=== PATIENT | female | born 2000 | race African-American/Black ===

== ENCOUNTER → 2020-08-19 12:18 | Outpatient (BNVA) | payer OTHER, SELFPAY | PROVIDERS: PCP Pediatrics; Referring Provider Pediatrics; Visit Provider Advanced Practice Midwife | DX: Z76.89 Persons encountering health services in other specified circumstances (principal) ==

== ENCOUNTER 2020-09-09 14:15 | Outpatient (REF) | payer OTHER, SELFPAY ==
--- NOTE | 2020-09-09 14:20 | US_ITS ---
EXAMINATION: US OBSTETRICAL CLINICAL INFORMATION: 19-year-old at 20.0 weeks of gestation Suspected anomaly COMPARISON: 07/15/2020 TECHNIQUE: Real-time transabdominal ultrasound was performed using C1-5 megahertz transducer. FINDINGS: A single, active, fetus is seen in breech presentation. The placenta is anterior without previa, and the amniotic fluid volume is wnl. MEASUREMENTS: 1. Biparietal Diameter: 4.93 cm; 21.0 wks 2. Occipital Frontal Diameter: 6.2 cm 3. Head Circumference: 18.2 cm; 20.5 wks 4. Abdominal Circumference: 15.2 cm; 20.3 wks 5. Femur Length: 3.5 cm; 21.0 wks 6. Humerus Length: 3.4 cm; 21.4 wks 7. Tibia Length: 2.5 cm; 19.1 wks 8. Ulna Length: 3.12 cm; 21.6 wks 9. Lateral ventricle: 0.76 cm 10. Cerebellum: 1.98 cm; 20.2 wks 11. Cisterna Magna: 0.59 cm 12. Nuchal Fold: 3.1 mm 13. Heart Rate: 135 beats per minute Rt ovary: normal Lt ovary: normal Cervical length 3.8 cm on T/A. GESTATIONAL AGE: 1. Established GA: 20.0 wks 2. GA from [facility]: 20.6 wks ESTIMATED DATE OF DELIVERY: 1. Established ANDRES: 01/27/2021 2. ANDRES from [facility]: 01/21/2021 ANATOMY: The visualized anatomy includes but not limited to: 1. Cranium: Normal 2. Intracranial anatomy: cavum septum pellucidi, lateral ventricles, choroid plexus, cerebellum, posterior fossa, third and fourth ventricles. 3. face: orbits, lip/palate, profile, nasal bone 4. Heart: four-chamber view of the heart, ventricular septum, foramen ovale, pulmonary vein, left and right outflow tracts, three-vessel view, 3 vessel trachea view, aortic and ductal arches, situs.. 5. Diaphragm: Normal 6. Abdominal wall: Normal 7. Cord Insertion: Normal 8. Spine: Cervical, thoracic, lumbar, sacral. 9. Stomach: Normal size and shape 10. Right Kidney: Normal 11. Left Kidney: Normal 12. 3 vessel cord: Normal 13. Upper extremity: Open hands, fifth digit. 14. Lower extremity: Tibia, fibula, bilateral feet. 15. Bladder: Normal 16. Genitalia: Male, patient aware US/US OB /maternal detail IMPRESSION: 1. Single, living, intrauterine with appropriate biometry. 2. Normal survey DISCUSSION: I reviewed today's ultrasound findings. We discussed the limitations of ultrasound in diagnosing aneuploidy and other congenital abnormalities. I reviewed the differences between screening test and diagnostic test. Amniocentesis was discussed and declined. She was informed that the baseline incidence of congenital abnormalities is approximately 3-5%. Not all these conditions are diagnosable in utero. RECOMMENDATIONS: 1. f/u PRN Thank you for allowing me to participate in her care. Visiting time 25 minutes. Majority of this visit was spent reviewing and discussing her care.
== END 2020-09-09 14:16 | disposition home or self-care (01) ==
LOC: HO.US 14:15
PROVIDERS: Visit Provider Advanced Practice Midwife
DX: Z36.3 Encounter for antenatal screening for malformations (principal)
CPT/HCPCS: 76811

== ENCOUNTER 2020-09-26 13:27 | Outpatient (REF) | payer OTHER, SELFPAY ==
[2020-09-27 09:18] LABS: CT PCR NOT DETECTED (Not Detect.); NG PCR NOT DETECTED (Not Detect.)
[2020-09-27 13:27] LABS: BV Int Neg Control Negative (Negative); BV Int Pos Control Positive (Positive)
== END 2020-09-26 13:28 | disposition home or self-care (01) ==
LOC: HO.LAB 13:27
PROVIDERS: PCP Pediatrics; Visit Provider Advanced Practice Midwife
DX: Z34.90 Encounter for supervision of normal pregnancy, unspecified, unspecified trimester (principal); N89.8 Other specified noninflammatory disorders of vagina; Z20.2 Contact with and (suspected) exposure to infections with a predominantly sexual mode of transmission
CPT/HCPCS: 87480; 87491; 87510; 87591; 87660; 90686

== ENCOUNTER → 2020-10-12 10:43 | Outpatient (BNVA) | payer OTHER, SELFPAY | PROVIDERS: PCP Pediatrics; Visit Provider Advanced Practice Midwife | DX: O26.892 Other specified pregnancy related conditions, second trimester (principal); M54.9 Dorsalgia, unspecified | CPT/HCPCS: 81003 ==

== ENCOUNTER → 2020-10-26 15:04 | Outpatient (BNVA) | payer OTHER, SELFPAY | PROVIDERS: PCP Pediatrics; Visit Provider Advanced Practice Midwife | DX: O36.5990 Maternal care for other known or suspected poor fetal growth, unspecified trimester, not applicable or unspecified (principal) | CPT/HCPCS: 81003; 99212 ==

== ENCOUNTER 2020-10-26 15:37 | Outpatient (REF) | payer OTHER, SELFPAY ==
--- NOTE | 2020-10-26 15:40 | US_ITS ---
EXAMINATION: US OBSTETRICAL FOLLOW UP WITH BIOPHYSICAL PROFILE CLINICAL INFORMATION: Size less than dates. Follow-up. COMPARISON: Obstetrical ultrasound 09/09/2020, 07/15/2020, 05/25/2020 TECHNIQUE: Real time transabdominal imaging with color and M-mode Doppler. POSITION: Breech PLACENTA: Anterior AMNIOTIC FLUID INDEX: 14.4 cm MEASUREMENTS: The initial dating ultrasound dated provided an estimated date of delivery of 01/23/2021. This would project today to a of 27 weeks 2 days. biometric measurements are as follows: Biparietal Diameter: 6.7 cm (27 weeks 0 days) Occipital Frontal Diameter: 9.3 cm (28 weeks 4 days) Head Circumference: 25.9 cm (28 weeks 1 day) Abdominal Circumference: 22.8 cm (27 weeks 2 days) Femur Length: 4.9 cm (26 weeks 4 days) The standard deviation for the above measurements is +/- 2.2 weeks. ESTIMATED WEIGHT: The EFW is 1017 grams +/- 149 grams (2 lbs 4 oz +/- 5 oz). This is at the 51st percentile. BIOPHYSICAL PROFILE: Biophysical profile is performed over 30 minutes with assessment of breathing, gross body movement, tone, and qualitative amniotic fluid volume. Each matrix is scored 0 or 2, depending if the metric is present. Maximum total score possible is 8. Motion: 2 Tone: 2 Breathin Amniotic Fluid: 2 Total score: 8 HR: 147 bpm US/US OB follow up IMPRESSION: 1. Single intrauterine gestation in breech position with anterior placenta. 2. EFW is 1017 grams +/- 149 grams (2 lbs 4 oz +/- 5 oz). This is at the 51st percentile. 3. ETHAN: 14.4 cm. 4. BPP score: 8 (scale 0-8).
== END 2020-10-26 15:38 | disposition home or self-care (01) ==
LOC: HO.US 15:37
PROVIDERS: PCP Pediatrics; Visit Provider Advanced Practice Midwife
DX: O36.5920 Maternal care for other known or suspected poor fetal growth, second trimester, not applicable or unspecified (principal); Z3A.27 27 weeks gestation of pregnancy
CPT/HCPCS: 76816

== ENCOUNTER 2020-11-09 14:15 | Outpatient (REF) | payer OTHER, SELFPAY ==
[2020-11-09 16:59] LABS: Hematocrit 31.6 % (37-47); Hemoglobin 10.2 g/dl (12.0-16.0); Mean Corpuscular HGB Conc 32.3 g/dl (31.0-35.0); Mean Corpuscular Hemoglobin 25.8 pg (27.0-33.0); Mean Corpuscular Volume 79.8 fL (80-98); Mean Platelet Volume 10.1 fL (9.4-12.3); Platelet Count 269 X10*3/uL (160-400); Red Blood Count 3.96 X10*6/uL (4.20-5.50); Red Cell Distribution Width 11.8 % (11.0-16.0); White Blood Count 10.1 X10*3/uL (4.8-10.8)
[2020-11-09 17:36] LABS: Glucose 1 Hour PP 50gm Dose 106 mg/dL (60-140)
[2020-11-09 18:01] LABS: Syphilis Screen Nonreactive (Nonreactive)
== END 2020-11-09 14:16 | disposition home or self-care (01) ==
LOC: HO.LAB 14:15
PROVIDERS: PCP Pediatrics; Visit Provider Advanced Practice Midwife
DX: Z34.90 Encounter for supervision of normal pregnancy, unspecified, unspecified trimester (principal)
CPT/HCPCS: 36415; 81003; 85027; 86780; 99212

== ENCOUNTER → 2020-11-23 14:15 | Outpatient (BNVA) | payer OTHER, SELFPAY | PROVIDERS: Visit Provider Advanced Practice Midwife | DX: Z34.02 Encounter for supervision of normal first pregnancy, second trimester (principal) | CPT/HCPCS: 81003; 99212 ==

== ENCOUNTER → 2020-12-07 14:38 | Outpatient (BNVA) | payer OTHER, SELFPAY | PROVIDERS: PCP Pediatrics; Visit Provider Advanced Practice Midwife | DX: O99.891 Other specified diseases and conditions complicating pregnancy (principal); M54.9 Dorsalgia, unspecified | CPT/HCPCS: 81003; 90471; 90715; 99212 ==

== ENCOUNTER → 2020-12-21 14:26 | Outpatient (BNVA) | payer OTHER, SELFPAY | PROVIDERS: PCP Pediatrics; Visit Provider Advanced Practice Midwife | DX: Z34.90 Encounter for supervision of normal pregnancy, unspecified, unspecified trimester (principal); Z20.2 Contact with and (suspected) exposure to infections with a predominantly sexual mode of transmission | CPT/HCPCS: 81003; 99212 ==

== ENCOUNTER 2020-12-27 15:23 | Outpatient (REF) | payer OTHER, SELFPAY ==
--- NOTE | ~2020-12-27 | US_ITS ---
EXAMINATION: US OBSTETRICAL FOLLOW UP WITH BIOPHYSICAL PROFILE CLINICAL INFORMATION: Uterine size/date discrepancy COMPARISON: Previous exams most recent 10/26/2020 TECHNIQUE: Real time transabdominal imaging with color and M-mode Doppler. POSITION: Cephalic PLACENTA: Anterior. Grade 3. AMNIOTIC FLUID INDEX: 15.1 cm MEASUREMENTS: The estimated date of delivery by LMP of 01/27/2021. This would project today to a of 35 weeks 4 days. biometric measurements are as follows: Biparietal Diameter: 8.4 cm (34 weeks 0 days) Occipital Frontal Diameter: 11 cm (35 weeks 5 days) Head 32: cm (35 weeks 4 days) Abdominal Circumference: 32.5 cm (36 weeks 3 days) Femur Length: 6.7 cm (34 weeks 2 days) The standard deviation for the above measurements is +/- 3 weeks. ESTIMATED WEIGHT: The EFW is 2704 grams +/- 395 grams (5 lbs 15 oz +/- 14 oz). This is at the 48 percentile. BIOPHYSICAL PROFILE: Biophysical profile is performed over 30 minutes with assessment of breathing, gross body movement, tone, and qualitative amniotic fluid volume. Each matrix is scored 0 or 2, depending if the metric is present. Maximum total score possible is 8. Motion: 2 Tone: 2 Breathin Amniotic Fluid: 2 Total score: 8 HR: 146 bpm US/US OB follow up IMPRESSION: 1. Single intrauterine gestation in cephalic position with anterior placenta. 2. EFW: 5 lbs. 15 oz. 3. ETHAN: 15 cm. 4. BPP score: 8 (scale 0-8).
== END 2020-12-27 15:24 | disposition home or self-care (01) ==
LOC: HO.US 15:23
PROVIDERS: Visit Provider Obstetrics & Gynecology
DX: O26.849 Uterine size-date discrepancy, unspecified trimester (principal)
CPT/HCPCS: 76816

== ENCOUNTER → 2020-12-28 13:35 | Outpatient (BNVA) | payer OTHER, SELFPAY | PROVIDERS: PCP Pediatrics; Visit Provider Advanced Practice Midwife | DX: Z34.93 Encounter for supervision of normal pregnancy, unspecified, third trimester (principal) | CPT/HCPCS: 81003; 99212 ==

== ENCOUNTER → 2021-01-20 09:53 | Outpatient (BNVA) | payer OTHER, SELFPAY | PROVIDERS: Visit Provider Advanced Practice Midwife | DX: Z39.2 Encounter for routine postpartum follow-up (principal) | CPT/HCPCS: 99212 ==

== ENCOUNTER 2021-04-11 16:12 | Emergency (ER) | payer OTHER, SELFPAY ==
[2021-04-11 16:35] VITALS: BP 113/60; PULSE 86; RESP 18; TEMP 36; O2SAT 99; BMI 23.4
[2021-04-11 17:08] LABS: Glucose Urine UA NEG (NEG); Leukocyte Esterase Urine NEG (NEG); Nitrite Urine NEG (NEG); Urine Blood NEG (NEG); Urine Ketones 5 MG/DL (NEG); Urine Protein TRACE MG/DL (NEG-TRACE)
[2021-04-11 17:10] LABS: Urine Pregnancy POSITIVE (NEGATIVE)
[2021-04-11 17:11] LABS: UPreg QC Valid YES
[2021-04-11 17:12] LABS: Appearance Urine CLEAR; Color Urine YELLOW
== END 2021-04-11 19:18 | disposition left against medical advice (07) ==
PROVIDERS: Internal Medicine; Emergency Provider Emergency Medicine; PCP Pediatrics
DX: O26.891 Other specified pregnancy related conditions, first trimester (principal); R10.9 Unspecified abdominal pain; Z3A.00 Weeks of gestation of pregnancy not specified
CPT/HCPCS: 81003; 81025; 99282; 99283

== ENCOUNTER 2021-04-12 06:35 | Emergency (ER) | payer OTHER, SELFPAY ==
[2021-04-12 06:50] VITALS: BP 111/60; PULSE 80; RESP 16; TEMP 36.9; O2SAT 100; BMI 23.1
--- NOTE | 2021-04-12 07:01 | ED.FEMALEGU ---
HPI - Female Genitourinary General Chief complaint: Abdominal Pain Stated complaint: , cramps and soreness Time Seen by Provider: 04/12/21 06:52 Source: patient and old records reviewed Mode of arrival: ambulatory Limitations: no limitations History of Present Illness HPI Narrative: 20 yo female post c section scooby in December not on control, bottle feeding, had 10 days of bleeding in january she then took a test March 29 which was positive, she comes in c/o some spotting, white discharge and lower abdominal cramps, no concern for STI MD elicited complaint: vaginal discharge and pelvic pain Onset (ago): day(s) (2) Severity: moderate Quality of pain: cramping Consistency: intermittent Vaginal discharge: white Vaginal bleeding: scant Exacerbating factors: none Relieving factors: none Associated symptoms: abdominal pain Treatment prior to arrival: none Sexual activity: Yes Possible : unsure if Related Data Home Medications Medication Instructions Recorded Confirmed prenat.vits,tiffany,[id number] 1 tab PO DAILY 08/19/20 12/21/20 Previous Rx's Medication Instructions Recorded metronidazole 0.75 % vaginal gel 1 appful VAGINAL BEDTIME 5 Days 09/28/20 #70 g ferrous sulfate 325 mg (65 mg 325 mg PO DAILY 30 Days #30 tab 11/10/20 iron) tablet,delayed release Allergies Allergy/AdvReac Type Severity Reaction Status Date / Time No Known Allergies Allergy Verified 04/11/21 16:34 [No Known Allergies*] Review of Systems Review of Systems: Constitutional : No Weight loss, No Fever, No Chills ENT/Mouth : No sore throat, No Rhinorrhea Eyes: No Swelling, No Redness Cardiovascular : No Chest Pain, No SOB, NoEdema Respiratory : No Cough, No Sputum, No Wheezing Gastrointestinal : no Nausea, no Vomiting, no Diarrhea, positive abdominal Pain, No Hematochezia, No Melena Genitourinary : No Dysuria, No Urinary Frequency, No Hematuria, No Urgency, pos pelvic pain, pos discharge, scant spotting Musculoskeletal : No joint pain, No Myalgias, No Joint Swelling Skin : No Skin Lesions, No rash Neuro : No Weakness, No Numbness, No Dizziness, No Headache Psych : No Anxiety/Panic, No Depression Heme/Lymph: No Bruising, No Lymphadenopathy Endocrine : No Polyuria, No Polydipsia All other systems reviewed and are negative. PMFSH Past Medical History Attestation statement: The following information was validated with the patient. Medical History delivery delivered Supervision of normal Social History Social History (Updated 04/12/21 @ 07:12 by Ashly Smiley DO) Alcohol intake: never Patient Tobacco Use Status: Never used Tobacco Advance Directives: No Advance Directives Information Provided: No Patient : Yes Sexual orientation: Straight/Heterosexual Gender identity: female Physical Exam Vital Signs: Vital Signs: Last Vital Signs Temp 98.4 F 04/12/21 08:30 Pulse 77 04/12/21 08:30 Resp 16 04/12/21 08:30 BP 116/59 L 04/12/21 08:30 Pulse Ox 100 04/12/21 08:30 Body Mass Index 23.1 Appearance: Alert. Oriented X3. No acute distress. Eyes: Pupils equal, round and reactive to light. ENT: Pharynx normal. Neck: Normal inspection. Neck supple. CVS: Normal heart rate and rhythm. Pulses normal. Respiratory: No respiratory distress. Breath sounds normal. Abdomen: Soft and lower diffuse ttp no rebound or guarding Skin: Skin warm and dry. Normal skin color. Normal skin turgor. Extremities: No lower extremity edema. No calf ttp Neuro: Oriented X 3. No motor deficit. No sensory deficit. Course Course Course Narrative: stable for DC at this time Procedures Procedure Narrative Procedure Narrative: transabdominal US performed by me - single IUP noted with cardiac flicker, no ovarian cysts seen, flow to both ovaries, no free fluid seen MDM - Female Genitourinary MDM Narrative Medical decision making narrative: 20 yo female post c section delivery in December not on control, bottle feeding, had 10 days of bleeding in January she then took a test March 29 which was positive, she comes in c/o some spotting, white discharge and lower abdominal cramps, no concern for STI at this time will need labs, UA, hcg, O POS blood type, possible US to evaluate for ectopic pending quant. Lab Data Result diagrams: 04/12/21 08:12 04/12/21 08:12 Labs: Lab Results 04/12/21 04/12/21 04/12/21 Range/Units 07:38 08:12 08:12 WBC 6.5 (4.8-10.8) X10*3/uL RBC 4.66 (4.20-5.50) X10*6/uL Hgb 11.3 L (12.0-16.0) g/dl Hct 35.4 L (37-47) % MCV 76.0 L (80-98) fL MCH 24.2 L (27.0-33.0) pg MCHC 31.9 (31.0-35.0) g/dl RDW 16.3 H (11.0-16.0) % Plt Count 248 (160-400) X10*3/uL MPV 9.7 (9.4-12.3) fL Immature Gran % (Auto) 0.3 (0.0-0.4) % Neut % (Auto) 64.1 (45-73) % Lymph % (Auto) 24.6 (20-40) % [place] % (Auto) 7.3 (2-11) % Eos % (Auto) 3.2 (0-4) % Baso % (Auto) 0.5 (0-2) % Lymph # (Auto) 1.6 (1.2-4.9) X10*3/uL [place] # (Auto) 0.5 (0.1-1.2) X10*3/uL Eos # (Auto) 0.2 (0.0-0.4) X10*3/uL Baso # (Auto) 0.0 (0.0-0.2) X10*3/uL Abs Immat Gran (auto) 0.02 (0.00-0.03) X10*3/uL Absolute Neuts (auto) 4.2 (2.0-8.3) X10*3/uL Absolute Nucleated RBC 0.000 (0.0-0.012) X10*3/uL Nucleated RBC % (auto) 0.0 (0.0-0.2) /100WBC Sodium 135 (135-145) mmol/L Potassium 4.2 (3.3-5.1) mmol/L Chloride 105 (96-108) mmol/L Carbon Dioxide 23 (22-29) mmol/L Anion Gap 11 L (12-20) BUN 11 (9-16) mg/dL Creatinine 0.57 (0.5-1.4) mg/dL Estim Creat Clear Calc 135.9 Estimated GFR > 60 Random Glucose 77 (60-115) mg/dL Calcium 9.0 (8.4-10.2) mg/dL Total Bilirubin (0.0-1.0) mg/dL Direct Bilirubin (0.0-0.5) mg/dL AST (5-31) U/L ALT (0-31) U/L Alkaline Phosphatase (39-117) U/L Total Protein (6.5-8.0) g/dL Albumin (3.5-5.0) g/dL Lipase (8-78) U/L Beta HCG, Quant 92816 mIU/mL Urine Color YELLOW Urine Appearance CLEAR Urine pH 6.5 (5.0-8.0) Ur Specific [place] 1.025 (1.005-1.025) Urine Protein NEG (NEG-TRACE) MG/DL Urine Glucose (UA) NEG (NEG) MG/DL Urine Ketones NEG (NEG) MG/DL Urine Blood NEG (NEG) Urine Nitrite NEG (NEG) Ur Leukocyte Esterase NEG (NEG) 04/12/21 Range/Units 08:12 WBC (4.8-10.8) X10*3/uL RBC (4.20-5.50) X10*6/uL Hgb (12.0-16.0) g/dl Hct (37-47) % MCV (80-98) fL MCH (27.0-33.0) pg MCHC (31.0-35.0) g/dl RDW (11.0-16.0) % Plt Count (160-400) X10*3/uL MPV (9.4-12.3) fL Immature Gran % (Auto) (0.0-0.4) % Neut % (Auto) (45-73) % Lymph % (Auto) (20-40) % [place] % (Auto) (2-11) % Eos % (Auto) (0-4) % Baso % (Auto) (0-2) % Lymph # (Auto) (1.2-4.9) X10*3/uL [place] # (Auto) (0.1-1.2) X10*3/uL Eos # (Auto) (0.0-0.4) X10*3/uL Baso # (Auto) (0.0-0.2) X10*3/uL Abs Immat Gran (auto) (0.00-0.03) X10*3/uL Absolute Neuts (auto) (2.0-8.3) X10*3/uL Absolute Nucleated RBC (0.0-0.012) X10*3/uL Nucleated RBC % (auto) (0.0-0.2) /100WBC Sodium (135-145) mmol/L Potassium (3.3-5.1) mmol/L Chloride (96-108) mmol/L Carbon Dioxide (22-29) mmol/L Anion Gap (12-20) BUN (9-16) mg/dL Creatinine (0.5-1.4) mg/dL Estim Creat Clear Calc Estimated GFR Random Glucose (60-115) mg/dL Calcium (8.4-10.2) mg/dL Total Bilirubin 0.4 (0.0-1.0) mg/dL Direct Bilirubin < 0.2 (0.0-0.5) mg/dL AST 21 (5-31) U/L ALT 24 (0-31) U/L Alkaline Phosphatase 108 (39-117) U/L Total Protein 6.3 L (6.5-8.0) g/dL Albumin 4.0 (3.5-5.0) g/dL Lipase 18 (8-78) U/L Beta HCG, Quant mIU/mL Urine Color Urine Appearance Urine pH (5.0-8.0) Ur Specific [place] (1.005-1.025) Urine Protein (NEG-TRACE) MG/DL Urine Glucose (UA) (NEG) MG/DL Urine Ketones (NEG) MG/DL Urine Blood (NEG) Urine Nitrite (NEG) Ur Leukocyte Esterase (NEG) Discharge Plan Discharge Clinical Impression: Abdominal pain affecting Qualifiers: Weeks of gestation: less than 8 weeks Qualified Code(s): Z3A.01 - Less than 8 weeks gestation of Patient Disposition: Home, Self-Care Instructions: Abdominal Pain in (ED) Additional Instructions: return to ED for any worsening symptoms or concerns suspect off ultrasound and blood work you are around 6 to 8 weeks CALL YOUR OBGYN Prescriptions: No Action metronidazole [Metrogel Vaginal] 0.75 % gel 1 appful vaginal BEDTIME 5 Days Qty: 70 RF: 0 ferrous sulfate 325 mg (65 mg iron) tablet,delayed release (DR/EC) 325 mg PO DAILY 30 Days Qty: 30 RF: 6 prenat.vits,tiffany,[id number] Tablet 1 tab PO DAILY RF: 0 Stand Alone Forms: Work/School Release
[2021-04-12] MEDS: Acetaminophen 325 MG TABLET 650 MG PO (07:36)
[2021-04-12 07:45] LABS: Color Urine YELLOW; Glucose Urine UA NEG (NEG); Leukocyte Esterase Urine NEG (NEG); Nitrite Urine NEG (NEG); PH 6.5 (5.0-8.0); Specific Gravity - Urine 1.025 (1.005-1.025); Urine Blood NEG (NEG); Urine Ketones NEG (NEG); Urine Protein NEG (NEG-TRACE)
[2021-04-12 07:46] LABS: Appearance Urine CLEAR
[2021-04-12 08:17] LABS: Basophils Percent Auto 0.5 % (0-2); Eosinophils Absolute Auto 0.2 X10*3/uL (0.0-0.4); Eosinophils Percent Auto 3.2 % (0-4); Hematocrit 35.4 % (37-47); Hemoglobin 11.3 g/dl (12.0-16.0); Imm Gran Abs Auto 0.02 X10*3/uL (0.00-0.03); Imm Gran Pct Auto 0.3 % (0.0-0.4); Lymphocytes Absolute Auto 1.6 X10*3/uL (1.2-4.9); Lymphocytes Percent Auto 24.6 % (20-40); MANUAL DIFF FLAG NO; Mean Corpuscular HGB Conc 31.9 g/dl (31.0-35.0); Mean Corpuscular Hemoglobin 24.2 pg (27.0-33.0); Mean Platelet Volume 9.7 fL (9.4-12.3); Monocytes Absolute Auto 0.5 X10*3/uL (0.1-1.2); Monocytes Percent Auto 7.3 % (2-11); Neutrophils Absolute Auto 4.2 X10*3/uL (2.0-8.3); Neutrophils Percent Auto 64.1 % (45-73); Platelet Count 248 X10*3/uL (160-400); Red Blood Count 4.66 X10*6/uL (4.20-5.50); Red Cell Distribution Width 16.3 % (11.0-16.0); White Blood Count 6.5 X10*3/uL (4.8-10.8)
[2021-04-12 08:30] VITALS: BP 116/59; PULSE 77; RESP 16; TEMP 36.9; O2SAT 100
[2021-04-12 08:50] LABS: Anion Gap 11 (12-20); Blood Urea Nitrogen 11 mg/dL (9-16); Carbon Dioxide 23 mmol/L (22-29); Chloride 105 mmol/L (96-108); Creatinine Clr Calc Pharmacy 135.9; Estimated Glomerular Filt Rate > 60; Glucose Random 77 mg/dL (60-115); Potassium 4.2 mmol/L (3.3-5.1); Sodium 135 mmol/L (135-145)
[2021-04-12 08:51] LABS: Alanine Aminotransferase 24 U/L (0-31); Alkaline Phosphatase 108 U/L (39-117); Aspartate Amino Transferase 21 U/L (5-31); Bilirubin Direct < 0.2 mg/dL (0.0-0.5); Bilirubin Total 0.4 mg/dL (0.0-1.0); Lipase 18 U/L (8-78); Total Protein 6.3 g/dL (6.5-8.0)
== END 2021-04-12 09:42 | disposition home or self-care (01) ==
PROVIDERS: Emergency Provider Emergency Medicine; PCP Pediatrics
DX: O26.891 Other specified pregnancy related conditions, first trimester (principal); R10.9 Unspecified abdominal pain; Z3A.01 Less than 8 weeks gestation of pregnancy
CPT/HCPCS: 36415; 80048; 80076; 81003; 83690; 84702; 85025; 99283; 99284

== ENCOUNTER → 2021-12-26 15:22 | Outpatient (BNVA) | payer OTHER, SELFPAY | PROVIDERS: PCP Pediatrics; Visit Provider Advanced Practice Midwife ==

== ENCOUNTER 2022-01-25 10:24 | Outpatient (REF) | payer OTHER, SELFPAY ==
[2022-01-25 18:47] LABS: CT PCR NOT DETECTED (Not Detect.); NG PCR NOT DETECTED (Not Detect.)
[2022-01-26 11:17] LABS: BV Int Neg Control Negative (Negative); BV Int Pos Control Positive (Positive)
== END 2022-01-25 10:25 | disposition home or self-care (01) ==
LOC: HO.LAB 10:24
PROVIDERS: PCP Pediatrics; Visit Provider Advanced Practice Midwife
DX: Z30.432 Encounter for removal of intrauterine contraceptive device (principal); N89.8 Other specified noninflammatory disorders of vagina
CPT/HCPCS: 58301; 87480; 87491; 87510; 87591; 87660

== ENCOUNTER 2022-05-15 15:43 | Outpatient (REF) | payer OTHER, SELFPAY ==
[2022-05-16 05:17] LABS: HBc Num1 0.09 S/CO (0.00-0.79); HIV AB/AG Nonreactive (Nonreactive); HIV Num 1 0.17 S/CO (0.00-0.99); Hepatitis B Core Antibody Nonreactive (Nonreactive); ~HepC Num1 0.06 S/CO (0.00-0.79); ~Hepatitis C Antibody Nonreactive (Nonreactive)
[2022-05-16 07:09] LABS: Syphilis Screen Nonreactive (Nonreactive)
[2022-05-16 14:17] LABS: CT PCR NOT DETECTED (Not Detect.); NG PCR NOT DETECTED (Not Detect.)
== END 2022-05-15 15:44 | disposition home or self-care (01) ==
LOC: HO.LAB 15:43
PROVIDERS: Visit Provider Advanced Practice Midwife
DX: Z01.419 Encounter for gynecological examination (general) (routine) without abnormal findings (principal); Z11.4 Encounter for screening for human immunodeficiency virus [HIV]; Z11.3 Encounter for screening for infections with a predominantly sexual mode of transmission; Z20.2 Contact with and (suspected) exposure to infections with a predominantly sexual mode of transmission; N92.6 Irregular menstruation, unspecified
CPT/HCPCS: 36415; 81025; 86704; 86780; 86803; 87389; 87491; 87591; 88142

== ENCOUNTER 2022-08-14 05:54 | Emergency (ER) | payer OTHER, SELFPAY ==
[2022-08-14 06:14] VITALS: BP 122/67; PULSE 89; RESP 16; TEMP 37; O2SAT 100; BMI 22.3
--- NOTE | 2022-08-14 07:44 | ED_ITS ---
HPI - Female Genitourinary General Chief complaint: Urogenital-Female Stated complaint: possible cyst in private area Time Seen by Provider: 08/14/22 07:44 Source: patient Mode of arrival: ambulatory Limitations: no limitations History of Present Illness HPI Narrative: 21-year-old female patient presents emergency department for evaluation of swelling of the left side of her vagina. The patient developed pain and swelling the left side of her internal medicine veterinary technician a 3 days prior, she states that the pain and swelling is got progressively worse. She states that the pain is constant, throbbing sensation which is 10/10. She denied systemic symptoms such as fever, chills, fatigue, nausea or vomiting. She states this is the 1st episode of this type of swelling. The patient states that she is a and took a home test which was positive. She denied frequency, urgency dysuria. She denied vaginal discharge. MD elicited complaint: genital swelling (Left vaginal labia) Onset (ago): day(s) (3) Location of symptoms: external genitalia Severity: severe Female Urogenital Radiation: Non-Radiating Severity scale (1-10): 10 Quality of pain: other (Const) Consistency: constant Vaginal discharge: none Vaginal bleeding: none Exacerbating factors: none Relieving factors: none Treatment prior to arrival: none (Ibuprofen) Related Data Previous Rx's Medication Instructions Recorded vitamin with calcium 1 tab PO DAILY #30 tabs 01/25/22 no.72-iron 27 mg-folic acid 1 mg tablet ( Vitamins Plus Low Iron) doxycycline hyclate 100 mg tablet 100 mg PO Q12H 7 days #14 tabs 08/14/22 ibuprofen 600 mg tablet 600 mg PO Q6H PRN pain #30 tabs 08/14/22 oxycodone 5 mg tablet 5 mg PO Q4H PRN pain #10 tabs 08/14/22 Allergies Allergy/AdvReac Type Severity Reaction Status Date / Time No Known Allergies Allergy Verified 05/15/22 15:22 [No Known Allergies*] Review of Systems Review of Systems: Yes all other systems are reviewed and are negative [facility] Past Medical History [facility] Narrative: Past medical history: . Past history: None. Social history: She denies tobacco, alcohol and drug use. Surgical History H/O section Social History Social History Alcohol intake: never Patient Tobacco Use Status: Never used Tobacco Advance Directives: No Sexual orientation: Straight/Heterosexual Gender identity: Female Physical Exam Vital Signs: Vital Signs: Last Vital Signs Temp 98.6 F 08/14/22 06:14 Pulse 89 08/14/22 06:14 Resp 16 08/14/22 06:14 BP 122/67 08/14/22 06:14 Pulse Ox 100 08/14/22 06:14 O2 Del Method 08/14/22 06:14 BMI result Body Mass Index 22.3 Const: General: cooperative and no acute distress Orientation/consciousne ss: oriented to person and oriented to place Limitations: no limitations HEENT: Head: Yes normal to inspection, Yes normocephalic and Yes atraumatic Ears: external ears normal General nose exam: Normal external nose present Face and sinus: Yes normal facial exam Mouth: Normal oral and palatal mucosa present Throat: Yes posterior oropharynx normal Eyes: General: appearance normal, both eyes and all related structures Pupils: Equal, round and reactive pupils present Neck: Neck: Yes normal visual inspection, Yes no lymphadenopathy, Yes trachea midline and Yes supple Chest: Chest palpation & inspection: normal inspection of the chest and normal palpation of entire chest wall Resp: Effort & Inspection: normal respiratory effort and able to speak in complete sentences Auscultation: clear to auscultation bilaterally Cardio: Rate: regular rate Rhythm: regular rhythm Heart sounds: S1 normal heart sound present, S2 normal heart sound present and no murmurs GI: Inspection: Yes normal to inspection Palpation (GI): Soft to palpation, nontender and no guarding Auscultation: normal bowel sounds : Other: The patient's left external labia is erythematous and swollen 2 approximately 2 and half times the size of the right, there is an area of flocculence noted over the distal 3rd aspect of the labia. The labia is very tender to palpation. Skin: General skin exam: no rashes or lesions noted Neuro: General: oriented to person and oriented to place Cranial nerves: Yes CN's II-XII intact bilaterally and Yes Equal, round and reactive pupils present Cognition (Neuro): normal cognition Motor exam (neuro): 5/5 motor strength present throughout Extrem: General: Yes normal to inspection Psych: Appearance: grossly normal Speech and movement: Normal speech and movement present Affect: normal affect Attitude: cooperative Thought process: Normal thought process present Thought content: Normal thought content present Course Course Course Narrative: 21-year-old female who presents emergency department for evaluation of left labial pain x3 days with increased swelling and pain over the past 24 hours, she had no systemic symptoms. Physical examination was consistent with a left labial abscess. I did incise and drain the abscess and approximately 20 cc of purulent material was drained from the incision a Word catheter was placed in the balloon was inflated with approximately 5 cc of water. The patient was premedicated prior to the procedure with oxycodone 10 mg orally with some improvement of her pain. Patient had a negative quantitative beta-hCG and a negative test the patient's urinalysis was nondiagnostic. The patient will be started on doxycycline 100 mg twice a day for 7 days. She was also prescribed ibuprofen 600 mg 3 times a day and for pain not relieved by ibuprofen she was prescribed oxycodone. The patient was advised to follow-up with her internal medicine veterinary technician hydrogen treater in 1 week, I told her that the catheter wiggins staying in until her algebra teacher remove is a but it does not need to be reinserted if it falls out pain MDM - Female Genitourinary Lab Data Labs: Lab Results 08/14/22 08/14/22 08/14/22 Range/Units 10:00 10:00 10:13 Beta HCG, Quant < 2 mIU/mL Urine Color Yellow Urine Appearance Clear Urine pH 7.5 (5.0-9.0) Ur Specific [place] 1.025 (1.005-1.025) Urine Protein Negative (Neg-Trace) mg/dL Urine Glucose (UA) Negative (Negative) mg/dL Urine Ketones Negative (Negative) mg/dL Urine Blood Large (3+) H (Negative) Urine Nitrite Negative (Negative) Ur Leukocyte Esterase Trace H (Negative) Urine RBC >20 H (0-2) /HPF Urine WBC 0-5 (0-5) /HPF Ur Squamous Epith Cells 6-10 (0-2) /HPF Urine Bacteria 2+ (None Seen) Hyaline Casts 0-2 (0-2) /LPF Urine Test NEGATIVE (NEGATIVE) Procedures Procedure Narrative Procedure Narrative: Left vaginal labial incision, drainage and packing procedure: I did discuss the procedure with the patient and she gave me informed verbal consent. The patient was given ibuprofen 600 mg orally and oxycodone 10 mg orally 1 hour prior to the procedure with some improvement of her pain. The left vaginal labia was prepped with Betadine . The area of increased fl occulence was anesthetized with 2 pursue lidocaine with epinephrine times 6 cc. Using a 11. Blade scalpel I incised the area of increased flocculence and approximately 2 or 3 cc of purulent material was drained from the initial incision. I then explored abscess cavity with hemostats in approximately 20 cc of purulent material was expressed from the incision site. A 10 [place], 5 cc balloon word catheter was placed and approximately 5 cc of water was instilled into the balloon. The patient tolerated the procedure well. A culture was sent from the initial purulent material that was expressed from the incision. There was only minimal bleeding from the procedure. Discharge Plan Discharge Clinical Impression: Abscess of left genital labia Patient Disposition: Home, Self-Care Instructions: Bartholin Cyst (ED) Additional Instructions: You had an infected abscess of your left vaginal labia I did drain a significant amount of purulent material (pus) out of the wound. I inserted a Word catheter into the incision site, this should be removed by your algebra teacher in 1 week. This allows any pus that still inside to drain out. If the Word catheter falls out, it does not need to be replaced. Take doxycycline 100 mg pills, 1 pill every 12 hours for 7 days. Take ibuprofen 200 mg pills, 3 pills every 6 hours as needed for pain. For pain not relieved by ibuprofen, take oxycodone 5 mg pills, 1 pill every 4 hours as needed for pain. Do not drive or work while taking this medication since they can cause sleepiness. Oxycodone is a narcotic medication that can be addicting. If you are concerned about addiction you can ask the pharmacist for less pills or do not get this prescription filled. Follow-up with your gynecology in 5-7 days. Please return to the emergency department if your symptoms get worse or if you develop any symptoms that are concerning to you. Your urine test was negative. Your blood quantitative beta-hCG practice test was also negative. If you do not have a period in the next 1-2 weeks you should repeat your home test and follow-up with her algebra teacher for repeat blood testing. Prescriptions: New ibuprofen 600 mg tablet 600 mg PO Q6H PRN (Reason: pain) Qty: 30 0RF doxycycline hyclate 100 mg tablet 100 mg PO Q12H 7 Days Qty: 14 0RF oxycodone 5 mg tablet 5 mg PO Q4H PRN (Reason: pain) Qty: 10 0RF Rx Instructions: Patient may request partial fill; Partial Fill upon patient request. No Action Vitamin Plus Low Iron 27 mg iron- 1 mg tablet 1 tab PO DAILY Qty: 30 11RF Referrals: Laurent Salazar MD [Physician] - 5 days (Left vaginal labial abscess, incised, drained, Word Catheter. Treated with doxycycline 100 mg twice a day x7 days.) Stand Alone Forms: Work/School Release
[2022-08-14] MEDS: Ibuprofen 600 MG TABLET PO (08:12)
[2022-08-14] MEDS: oxyCODONE HCl Immed Release 5 MG TABLET 10 MG PO (08:12)
[2022-08-14] MEDS: Lidocaine HCl 2% PF/Epi 1:200 20 ML VIAL INFILTRATI (08:13)
[2022-08-14 10:09] LABS: Appearance Urine Clear; Color Urine Yellow; Glucose Urine UA Negative (Negative); Leukocyte Esterase Urine Trace (Negative); Nitrite Urine Negative (Negative); PH 7.5 (5.0-9.0); Specific Gravity - Urine 1.025 (1.005-1.025); UMIC TRIGGER UACC YES; Urine Blood Large (3+) (Negative); Urine Ketones Negative (Negative); Urine Protein Negative (Neg-Trace)
[2022-08-14 10:11] LABS: Bacteria Urine 2+ (None Seen); Hyaline Casts Urine 0-2 /LPF (0-2); RBC Urine >20 /HPF (0-2); UPreg QC Valid YES; Urine Pregnancy NEGATIVE (NEGATIVE); WBC Urine 0-5 /HPF (0-5)
[2022-08-14 10:47] LABS: HCG Quantitative < 2 mIU/mL
[2022-08-14 11:30] VITALS: BP 118/59; PULSE 88; RESP 18; O2SAT 100
== END 2022-08-14 11:35 | disposition home or self-care (01) ==
PROVIDERS: Emergency Provider Emergency Medicine Emergency Medical Services; PCP Pediatrics
DX: N76.4 Abscess of vulva (principal); Z79.899 Other long term (current) drug therapy
CPT/HCPCS: 36415; 56405; 81001; 81025; 84702; 87070; 87147; 87205; 99284

== ENCOUNTER 2022-09-18 15:43 | Emergency (ER) | payer OTHER, SELFPAY ==
[2022-09-18 15:55] VITALS: BP 124/60; PULSE 86; RESP 18; TEMP 36.5; O2SAT 100; BMI 23.1
[2022-09-18] MEDS: oxyCODONE HCl Immed Release 5 MG TABLET PO (16:32)
[2022-09-18] MEDS: Lidocaine HCl 1 % MPF 2 ML VIAL INFILTRATI (16:32)
--- NOTE | 2022-09-18 16:39 | ED_ITS ---
HPI - Skin/Abscess/Foreign Bdy General Chief complaint: Skin/Abscess/Foreign Body Stated complaint: abscess Time Seen by Provider: 09/18/22 16:08 Source: patient Mode of arrival: ambulatory Limitations: no limitations History of Present Illness HPI narrative: 21 year old female here with left labial swelling and tenderness for the last few days with a history of a Bartholian abscess on same side. No fevers, chills Related Data Previous Rx's Medication Instructions Recorded vitamin with calcium 1 tab PO DAILY #30 tabs 01/25/22 no.72-iron 27 mg-folic acid 1 mg tablet ( Vitamins Plus Low Iron) doxycycline hyclate 100 mg tablet 100 mg PO Q12H 7 days #14 tabs 08/14/22 ibuprofen 600 mg tablet 600 mg PO Q6H PRN pain #30 tabs 08/14/22 oxycodone 5 mg tablet 5 mg PO Q4H PRN pain #10 tabs 08/14/22 doxycycline monohydrate 100 mg 100 mg PO BID #14 caps 09/18/22 capsule ibuprofen 600 mg tablet 600 mg PO Q8H PRN fever or pain 09/18/22 #30 tabs oxycodone 5 mg tablet 5 mg PO Q6H PRN pain #5 tabs 09/18/22 Allergies Allergy/AdvReac Type Severity Reaction Status Date / Time No Known Allergies Allergy Verified 05/15/22 15:22 [No Known Allergies*] Review of Systems Review of Systems: Yes all other systems are reviewed and are negative Constitutional: Constitutional: Reports no additional constitutional complaints, Denies body ache(s), Denies chills, Denies fever(s), Denies headache(s) and Denies weakness Eyes: Eyes: Reports no additional eye complaints and Denies change in vision ENT: Reports system reviewed and no additional complaints, except as documented, Denies dizziness, Denies headache(s), Denies nasal congestion, Denies nasal discharge and Denies neck pain Cardiovascular: Cardiovascular: Reports no additional cardiovascular complaints, Denies chest pain, Denies leg edema and Denies dyspnea Respiratory: Respiratory: Reports no additional respiratory complaints, Denies cough and Denies dyspnea Gastrointestinal: Gastrointestinal: Reports no additional gastrointestinal complaints, Denies abdominal pain, Denies diarrhea, Denies nausea and Denies vomiting Genitourinary: Genitourinary: Reports no additional female genitourinary complaints and Denies urinary incontinence Musculoskeletal: Musculoskeletal: Reports no additional musculoskeletal complaints, Denies back pain, Denies arthralgias, Denies joint swelling, Denies neck pain, Denies numbness and Denies tingling Integumentary/Breasts: Skin/Breast: Reports system reviewed and no additional complaints, except as docu, Reports swelling, Reports erythema and Denies rash Neurologic: Reports system reviewed and no additional complaints, except as documented, Denies Abnormal speech present, Denies dizziness, Denies headach e(s), Denies numbness, Denies tingling and Denies weakness [facility] Past Medical History Attestation statement: The following information was validated with the patient. Source: old records reviewed and nursing notes reviewed Surgical History H/O section Social History Social History Alcohol intake: never Patient Tobacco Use Status: Never used Tobacco Advance Directives: No Advance Directives Information Provided: No Sexual orientation: Straight/Heterosexual Gender identity: Female Physical Exam Vital Signs: Vital Signs: Last Vital Signs Temp 97.7 F 09/18/22 15:55 Pulse 86 09/18/22 15:55 Resp 18 09/18/22 15:55 BP 124/60 09/18/22 15:55 Pulse Ox 100 09/18/22 15:55 O2 Del Method 09/18/22 15:55 BMI result Body Mass Index 23.1 Const: General: cooperative, healthy appearing, comfortable and no acute distress Orientation/consciousness: patient oriented x3 Limitations: no limitations HEENT: Head: Yes normal to inspection Ears: hearing grossly normal bilaterally General nose exam: Normal external nose present Face and sinus: Yes normal facial exam Mouth: Normal oral and palatal mucosa present Throat: Yes posterior oropharynx normal Eyes: General: appearance normal, both eyes and all related structures Pupils: Equal, round and reactive pupils present Neck: Neck: Yes normal visual inspection Chest: Chest palpation & inspection: normal inspection of the chest Resp: Effort & Inspection: normal respiratory effort Auscultation: clear to auscultation bilaterally Cardio: Rate: regular rate Rhythm: regular rhythm Peripheral pulses: Peripheral pulses 2+ throughout GI: Inspection: Yes normal to inspection Palpation (GI): Soft to palpation and nontender Auscultation: normal bowel sounds : 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 A Word catheter was placed. Recommend patient follow-up outpatient with Gynecology. Reviewed worrisome signs and symptoms and when to return to the emergency room. Comfortable plan for discharge home. Medications Administered Discontinued Medications Generic Name Dose Route Start Last Admin Trade Name Freq PRN Reason Stop Dose Admin Lidocaine HCl 2 ml 09/18/22 16:28 09/18/22 16:32 Lidocaine Hcl 1 % Mpf 2 Ml Vial INFILTRATI 09/18/22 16:29 2 ml ONCE ONE Administration Oxycodone HCl 5 mg 09/18/22 16:28 09/18/22 16:32 Oxycodone Hcl Immed Release 5 Mg Tablet PO 09/18/22 16:29 5 mg ONCE ONE Administration MDM - Skin/Abscess/Foreign Bdy MDM Narrative Medical decision making narrative: 21-year-old female here with reoccur in left bartholian abscess See procedure note for I&D Medical Records Attestation: I reviewed the patient's medical records. Lab Data Attestation: I reviewed the patient's lab results. Procedures Abscess I/D Site: bartholin's gland Side (if applicable): left Local Anesthetic: lidocaine 1% Amount of anesthesia used (mL): 3 Technique: incised with blade Amount of fluid expressed (mL): 20 Sent for culture/gram staining?: No Packing used?: Word catheter Discharge Plan Discharge Clinical Impression: Abscess of Bartholin's gland Patient Disposition: Home, Self-Care Instructions: Abscess (ED), Incision and Drainage (ED) Additional Instructions: Word catheter removal in one week. If it falls out you do not need to return to the emergency room Try to get in with gynecology for removal within the week Prescriptions: New doxycycline monohydrate 100 mg capsule 100 mg PO BID Qty: 14 0RF oxycodone 5 mg tablet 5 mg PO Q6H PRN (Reason: pain) Qty: 5 0RF Rx Instructions: Partial Fill upon patient request. ibuprofen 600 mg tablet 600 mg PO Q8H PRN (Reason: fever or pain) Qty: 30 0RF No Action ibuprofen 600 mg tablet 600 mg PO Q6H PRN (Reason: pain) Qty: 30 0RF doxycycline hyclate 100 mg tablet 100 mg PO Q12H 7 Days Qty: 14 0RF oxycodone 5 mg tablet 5 mg PO Q4H PRN (Reason: pain) Qty: 10 0RF Rx Instructions: Patient may request partial fill; Partial Fill upon patient request. Vitamin Plus Low Iron 27 mg iron- 1 mg tablet 1 tab PO DAILY Qty: 30 11RF Referrals: Laurent Salazar MD [Physician] - 1 week Interventions: ED Discharge Assessment Last Done: 09/18/22 17:29 Discharge Date/Time: 09/18/22 17:29
== END 2022-09-18 17:29 | disposition home or self-care (01) ==
PROVIDERS: Emergency Provider Emergency Medicine; PCP Pediatrics
DX: N75.0 Cyst of Bartholin's gland (principal); Z79.899 Other long term (current) drug therapy
CPT/HCPCS: 56420; 99283; 99284

== ENCOUNTER → 2022-09-19 13:58 | Outpatient (BNVA) | payer OTHER, SELFPAY | PROVIDERS: PCP Pediatrics; Visit Provider Obstetrics & Gynecology | DX: N75.0 Cyst of Bartholin's gland (principal); Z98.890 Other specified postprocedural states | CPT/HCPCS: 99212 ==

== ENCOUNTER → 2022-10-11 09:02 | Outpatient (BNVA) | payer OTHER, SELFPAY | PROVIDERS: PCP Pediatrics; Visit Provider Obstetrics & Gynecology | DX: N75.0 Cyst of Bartholin's gland (principal) | CPT/HCPCS: 99212 ==

== ENCOUNTER → 2022-10-12 11:15 | Day surgery (SDC) | payer OTHER, SELFPAY ==
--- NOTE | 2022-10-11 12:13 | HO.ANESPROP2 ---
HPI - Anesthesia Eval Consult details Narrative: 21yo F for Bartholin Cyst Marsupialization PMFSH Active Problems Active Problems: All Active Problems (Updated 10/11/22 @ 09:39 by Laurent Salazar MD) Bartholin's gland cyst (Acute) Irregular menses (Acute) Encounter for annual routine gynecological examination (Acute) Vaginal discharge (Acute) Encounter for IUD removal (Acute) control counseling (Acute) Chlamydia contact, treated (Acute) Surgical History Surgical History H/O section Social History Social History Alcohol intake: never Patient Tobacco Use Status: Never used Tobacco Sexual orientation: Straight/Heterosexual Gender identity: Female Meds Allergies Allergy/AdvReac Type Severity Reaction Status Date / Time No Known Allergies Allergy Verified 09/19/22 14:24 [No Known Allergies*] Exam Exam Date and Time: October 11, 2022 1213 Assessment and Plan Assessment Anesthesia Assessment: Chart Reviewed
[2022-10-12 11:36] VITALS: BP 126/61; PULSE 94; RESP 16; TEMP 36.7; O2SAT 98; BMI 23.6
[2022-10-12 11:42] LABS: UPreg QC Valid YES; Urine Pregnancy POSITIVE (NEGATIVE)
[2022-10-12] MEDS: Lactated Ringers 1,000 ML 100 ML IVCONT (11:43)
== END ==
PROVIDERS: PCP Pediatrics; Visit Provider Obstetrics & Gynecology
DX: N75.0 Cyst of Bartholin's gland (principal); Z32.01 Encounter for pregnancy test, result positive
CPT/HCPCS: 56420; 81025; 99212

== ENCOUNTER 2022-10-12 13:20 | Outpatient (REF) | payer OTHER, SELFPAY | END 2022-10-12 13:21 | disposition home or self-care (01) | LOC: HO.LNP 13:20 | PROVIDERS: Visit Provider Obstetrics & Gynecology | DX: O26.899 Other specified pregnancy related conditions, unspecified trimester (principal); N75.0 Cyst of Bartholin's gland | CPT/HCPCS: 87070; 87147; 87205 ==

== ENCOUNTER 2022-10-15 15:57 | Outpatient (REF) | payer OTHER, SELFPAY | END 2022-10-15 15:58 | disposition home or self-care (01) | LOC: HO.US 15:57 | PROVIDERS: Visit Provider Obstetrics & Gynecology | DX: Z34.91 Encounter for supervision of normal pregnancy, unspecified, first trimester (principal); Z3A.01 Less than 8 weeks gestation of pregnancy | CPT/HCPCS: 76801; 76817 ==

== ENCOUNTER → 2022-10-25 12:50 | Outpatient (BNVA) | payer OTHER, SELFPAY | PROVIDERS: Visit Provider Advanced Practice Midwife | DX: Z71.2 Person consulting for explanation of examination or test findings (principal); Z34.00 Encounter for supervision of normal first pregnancy, unspecified trimester; Z3A.00 Weeks of gestation of pregnancy not specified | CPT/HCPCS: 99212 ==

== ENCOUNTER 2022-11-07 12:16 | Emergency (ER) | payer OTHER, SELFPAY ==
--- NOTE | 2022-11-07 12:39 | ED_ITS ---
HPI - General Chief complaint: Nausea/Vomiting/Diarrhea <JEOVANY Walsh - Last Filed: 11/07/22 12:44> Stated complaint: 8 wks preg/bleeding <JEOVANY Walsh - Last Filed: 11/07/22 12:44> Time Seen by Provider: 11/07/22 14:05 <JEOVANY Walsh - Last Filed: 11/07/22 12:44> Source: patient <Jessi Carrizales MD - Last Filed: 11/07/22 16:11> Mode of arrival: ambulatory <Jessi Carrizales MD - Last Filed: 11/07/22 16:11> Limitations: no limitations <Jessi Carrizales MD - Last Filed: 11/07/22 16:11> History of Present Illness HPI Narrative: 21-year-old female 8 weeks with no complication for this , came in today for evaluation of vomiting blood. Patient was eating a cheeseburger then shortly after felt nauseous and started throw up complaining of upper abdominal pain/soreness mostly with vomiting, patient vom ited twice this morning thought to have bright red blood in the vomit, currently patient has no nausea, no vomiting patient feels hungry with good appetite, never had this problem in the past. Declined any blood in the stool or black stool. No vaginal bleeding, no pelvic contractions. <Jessi Carrizales MD - Last Filed: 11/07/22 16:11> Related Data Home medications: Previous Rx's Medication Instructions Recorded ibuprofen 600 mg tablet 600 mg PO Q8H PRN fever or pain 09/18/22 #30 tabs amoxicillin 500 mg capsule 500 mg PO BID 7 days #14 caps 10/15/22 vitamin with calcium 1 tab PO DAILY #30 tabs 10/25/22 no.72-iron 27 mg-folic acid 1 mg tablet ( Vitamins Plus Low Iron) <JEOVANY Walsh - Last Filed: 11/07/22 12:44> Allergies/Adverse reactions: Allergies Allergy/AdvReac Type Severity Reaction Status Date / Time No Known Allergies Allergy Verified 11/07/22 12:43 [No Known Allergies*] <JEOVANY Walsh - Last Filed: 11/07/22 12:44> Review of Systems Review of Systems: All other systems are reviewed and are negative Constitutional: Reports as per HPI and Reports no additional constitutional c omplaints Eyes: Reports as per HPI and Reports no additional eye complaints Reports system reviewed and no additional complaints, except as documented Cardiovascular: Reports as per HPI and Reports no additional cardiovascular complaints Respiratory: Reports as per HPI and Reports no additional respiratory complaints Gastrointestinal: Reports as per HPI and Reports no additional gastrointestinal complaints Genitourinary: Reports no additional female genitourinary complaints Musculoskeletal: Reports no additional musculoskeletal complaints Skin/Breast: Reports system reviewed and no additional complaints, except as docu Psychiatric: Reports no additional psychiatric complaints Endocrine: Reports no additional endocrine complaints Hematologic/Lymphatic: Reports no additional hematologic/lymphatic complaints Allergic/Immunologic: Reports no additional allergic/immunologic complaints Reports system reviewed and no additional complaints, except as documented and Reports Abnormal speech present <Jessi Carrizales MD - Last Filed: 11/07/22 16:11> [facility] Past Medical History Medical History: Medical History Oligohydramnios Placental abruption <JEOVANY Walsh - Last Filed: 11/07/22 12:44> Surgical History: Surgical History H/O section <JEOVANY Walsh - Last Filed: 11/07/22 12:44> Social History Social History: Social History Alcohol intake: never Patient Tobacco Use Status: Never used Tobacco Advance Directives: No Patient : Yes Sexual orientation: Straight/Heterosexual Gender identity: Female <JEOVANY Walsh - Last Filed: 11/07/22 12:44> Physical Exam Vital Signs: Vital Signs: Last Vital Signs Temp 99.3 F 11/07/22 14:21 Pulse 88 11/07/22 14:21 Resp 20 11/07/22 14:21 BP 123/69 11/07/22 14:21 Pulse Ox 100 11/07/22 14:21 O2 Del Method 11/07/22 14:21 BMI result Body Mass Index 23.5 <JEOVANY Walsh - Last Filed: 11/07/22 12:44> Vital Signs: Last Vital Signs Temp 99.3 F 11/07/22 14:21 Pulse 88 11/07/22 14:21 Resp 20 11/07/22 14:21 BP 123/69 11/07/22 14:21 Pulse Ox 100 11/07/22 14:21 O2 Del Method 11/07/22 14:21 BMI result Body Mass Index 23.5 Vital signs have been reviewed as appeared to be correct. Blood pressure normal. Heart rate normal. Respiration rate normal. Temperature normal. Oxygen saturation normal. <Jessi Carrizales MD - Last Filed: 11/07/22 16:11> Appearance: Alert. Oriented X3. No acute distress. Head: Normal external exam. Normocephalic. Atraumatic. No [place] signs noted. No raccoon eyes noted Eyes: PERRLA. EOMI. Conjunctiva and sclera normal. Eyelids normal. ENT: TM's Normal. Pharynx normal. Uvula midline. Moist mucous membranes. No trismus noted. No drooling noted. No muffled voice noted. Neck: Normal inspection. Neck supple. FROM. No adenopathy. Thyroid Normal. No meningeal signs. No neck mass noted. CVS: Normal heart rate and rhythm. Heart sound normal. No murmurs noted. Pulses normal throughout. Respiratory: No respiratory distress. Painless inspiration. Breath sounds normal. No wheezes/rales/rhonchi noted. Chest nontender. No accessory muscle usage noted or decreased air movement noted. Abdomen: Soft and nontender. Bowel sounds normal in all 4 quadrants. No distention noted. No organomegaly noted. No visible injury noted. Rectal exam: Brown stool in the vault no hemorrhoids the with guaiac-negative for blood. Back: No CVA tenderness. Full range of motion noted. Skin: Skin warm and dry. Normal skin color. Normal skin turgor. No rashes/lesions/lacerations noted. Extremities: No lower extremity edema. Extremities exhibit normal range of motion. Extremities nontender. Neuro: Oriented X 3. Cranial nerve exam: II-XII are grossly intact No motor deficit. No sensory deficit. Reflexes normal. <Jessi Carrizales MD - Last Filed: 11/07/22 16:11> Course Course Course Narrative: RME - 21-year-old female who is currently 8 weeks presents to the ER for evaluation of vomiting bright red blood twice today, she reports large volume. No abdominal pain, vaginal bleeding. No hx UGIB. No melena, last BM a few days ago. She was last seen in Dr. Salazar use office on 10/25/22 with pelvic U/S 10/15/2022 confirming IUP. Holding off on repeat U/S today given no bleeding or pain. Will check basic labs. Stable to go to waiting room until treatment room is available. <JEOVANY Walsh - Last Filed: 11/07/22 12:44> Reevaluation(s) Reevaluation #1: 21-year-old female about 8 weeks came in for evaluation after having 2 times outpatient vomiting with bright red blood, declined seeing any blood in the stool or black stool, on exam patient tested trace positive for blood but no stool color change. Able to tolerate p.o. intake in the emergency department with no vomiting, in particular no further bleeding, improvement of the abdominal pain, patient was instructed to return if having any vomiting or blood in the stool or in the vomitus patient otherwise will follow-up with her OBGYN. <Jessi Carrizales MD - Last Filed: 11/07/22 16:11> Time: 16:08 <Jessi Carrizales MD - Last Filed: 11/07/22 16:11> Medical Decision Making Differential Diagnosis Differential Diagnoses: The differential diagnosis associated with the presentation includes (Hyperemesis gravidarum, gastroenteritis, gastritis, food poisoning.) <Jessi Carrizales MD - Last Filed: 11/07/22 16:11> Lab Data MDM Lab Attestation statement: I reviewed the patient's lab results. <Jessi Carrizales MD - Last Filed: 11/07/22 16:11> Result Diagrams: 11/07/22 13:10 11/07/22 13:10 <JEOVANY Walsh - Last Filed: 11/07/22 12:44> Labs: Lab Results 11/07/22 11/07/22 11/07/22 Range/Units 13:10 13:10 13:10 WBC 8.4 (4.8-10.8) X10*3/uL RBC 4.18 L (4.20-5.50) X10*6/uL Hgb 11.3 L (12.0-16.0) g/dl Hct 34.2 L (37.0-47.0) % MCV 81.8 (80.0-98.0) fL MCH 27.0 (27.0-33.0) pg MCHC 33.0 (31.0-35.0) g/dl RDW 13.0 (11.0-16.0) % Plt Count 235 (160-400) X10*3/uL MPV 9.7 (9.4-12.3) fL Immature Gran % (Auto) 0.2 (0.0-0.4) % Neut % (Auto) 68.6 (45-73) % Lymph % (Auto) 21.4 (20-40) % [place] % (Auto) 8.1 (2-11) % Eos % (Auto) 1.2 (0-4) % Baso % (Auto) 0.5 (0-2) % Lymph # (Auto) 1.8 (1.2-4.9) X10*3/uL [place] # (Auto) 0.7 (0.1-1.2) X10*3/uL Eos # (Auto) 0.1 (0.0-0.4) X10*3/uL Baso # (Auto) 0.0 (0.0-0.2) X10*3/uL Abs Immat Gran (auto) 0.02 (0.00-0.03) X10*3/uL Absolute Neuts (auto) 5.7 (2.0-8.3) x10*3/uL Absolute Nucleated RBC 0.000 (0.0-0.012) X10*3/uL Nucleated RBC % (auto) 0.0 (0.0-0.2) /100WBC PT 12.3 (10.0-13.1) SEC INR 1.1 (0.9-1.1) APTT 30.5 (26.0-36.4) SEC Sodium 134 L (135-145) mmol/L Potassium 3.9 (3.3-5.1) mmol/L Chloride 104 (96-108) mmol/L Carbon Dioxide 23 (22-29) mmol/L Anion Gap 11 L (12-20) BUN 7 L (9-16) mg/dL Creatinine 0.58 (0.5-1.4) mg/dL Estim Creat Clear Calc 132.4 Estimated GFR > 60 Random Glucose 88 (60-115) mg/dL Calcium 9.0 (8.4-10.2) mg/dL Magnesium 1.7 (1.6-2.6) mg/dL Total Bilirubin 0.3 (0.0-1.0) mg/dL Direct Bilirubin < 0.2 (0.0-0.5) mg/dL AST 18 (5-31) U/L ALT 11 (0-31) U/L Alkaline Phosphatase 73 (39-117) U/L Total Protein 6.6 (6.5-8.0) g/dL Albumin 4.1 (3.5-5.0) g/dL Beta HCG, Quant 548979 mIU/mL Urine Color Urine Appearance Urine pH (5.0-9.0) Ur Specific [place] (1.005-1.025) Urine Protein (Neg-Trace) mg/dL Urine Glucose (UA) (Negative) mg/dL Urine Ketones (Negative) mg/dL Urine Blood (Negative) Urine Nitrite (Negative) Ur Leukocyte Esterase (Negative) Stool Occult Blood (NEGATIVE) 11/07/22 11/07/22 Range/Units 14:28 14:28 WBC (4.8-10.8) X10*3/uL RBC (4.20-5.50) X10*6/uL Hgb (12.0-16.0) g/dl Hct (37.0-47.0) % MCV (80.0-98.0) fL MCH (27.0-33.0) pg MCHC (31.0-35.0) g/dl RDW (11.0-16.0) % Plt Count (160-400) X10*3/uL MPV (9.4-12.3) fL Immature Gran % (Auto) (0.0-0.4) % Neut % (Auto) (45-73) % Lymph % (Auto) (20-40) % [place] % (Auto) (2-11) % Eos % (Auto) (0-4) % Baso % (Auto) (0-2) % Lymph # (Auto) (1.2-4.9) X10*3/uL [place] # (Auto) (0.1-1.2) X10*3/uL Eos # (Auto) (0.0-0.4) X10*3/uL Baso # (Auto) (0.0-0.2) X10*3/uL Abs Immat Gran (auto) (0.00-0.03) X10*3/uL Absolute Neuts (auto) (2.0-8.3) x10*3/uL Absolute Nucleated RBC (0.0-0.012) X10*3/uL Nucleated RBC % (auto) (0.0-0.2) /100WBC PT (10.0-13.1) SEC INR (0.9-1.1) APTT (26.0-36.4) SEC Sodium (135-145) mmol/L Potassium (3.3-5.1) mmol/L Chloride (96-108) mmol/L Carbon Dioxide (22-29) mmol/L Anion Gap (12-20) BUN (9-16) mg/dL Creatinine (0.5-1.4) mg/dL Estim Creat Clear Calc Estimated GFR Random Glucose (60-115) mg/dL Calcium (8.4-10.2) mg/dL Magnesium (1.6-2.6) mg/dL Total Bilirubin (0.0-1.0) mg/dL Direct Bilirubin (0.0-0.5) mg/dL AST (5-31) U/L ALT (0-31) U/L Alkaline Phosphatase (39-117) U/L Total Protein (6.5-8.0) g/dL Albumin (3.5-5.0) g/dL Beta HCG, Quant mIU/mL Urine Color Yellow Urine Appearance Cloudy Urine pH 6.0 (5.0-9.0) Ur Specific [place] 1.025 (1.005-1.025) Urine Protein Negative (Neg-Trace) mg/dL Urine Glucose (UA) Negative (Negative) mg/dL Urine Ketones Trace (Negative) mg/dL Urine Blood Negative (Negative) Urine Nitrite Negative (Negative) Ur Leukocyte Esterase Negative (Negative) Stool Occult Blood POSITIVE (NEGATIVE) <JEOVANY Walsh - Last Filed: 11/07/22 12:44> Lab Results 11/07/22 11/07/22 11/07/22 Range/Units 13:10 13:10 13:10 WBC 8.4 (4.8-10.8) X10*3/uL RBC 4.18 L (4.20-5.50) X10*6/uL Hgb 11.3 L (12.0-16.0) g/dl Hct 34.2 L (37.0-47.0) % MCV 81.8 (80.0-98.0) fL MCH 27.0 (27.0-33.0) pg MCHC 33.0 (31.0-35.0) g/dl RDW 13.0 (11.0-16.0) % Plt Count 235 (160-400) X10*3/uL MPV 9.7 (9.4-12.3) fL Immature Gran % (Auto) 0.2 (0.0-0.4) % Neut % (Auto) 68.6 (45-73) % Lymph % (Auto) 21.4 (20-40) % [place] % (Auto) 8.1 (2-11) % Eos % (Auto) 1.2 (0-4) % Baso % (Auto) 0.5 (0-2) % Lymph # (Auto) 1.8 (1.2-4.9) X10*3/uL [place] # (Auto) 0.7 (0.1-1.2) X10*3/uL Eos # (Auto) 0.1 (0.0-0.4) X10*3/uL Baso # (Auto) 0.0 (0.0-0.2) X10*3/uL Abs Immat Gran (auto) 0.02 (0.00-0.03) X10*3/uL Absolute Neuts (auto) 5.7 (2.0-8.3) x10*3/uL Absolute Nucleated RBC 0.000 (0.0-0.012) X10*3/uL Nucleated RBC % (auto) 0.0 (0.0-0.2) /100WBC PT 12.3 (10.0-13.1) SEC INR 1.1 (0.9-1.1) APTT 30.5 (26.0-36.4) SEC Sodium 134 L (135-145) mmol/L Potassium 3.9 (3.3-5.1) mmol/L Chloride 104 (96-108) mmol/L Carbon Dioxide 23 (22-29) mmol/L Anion Gap 11 L (12-20) BUN 7 L (9-16) mg/dL Creatinine 0.58 (0.5-1.4) mg/dL Estim Creat Clear Calc 132.4 Estimated GFR > 60 Random Glucose 88 (60-115) mg/dL Calcium 9.0 (8.4-10.2) mg/dL Magnesium 1.7 (1.6-2.6) mg/dL Total Bilirubin 0.3 (0.0-1.0) mg/dL Direct Bilirubin < 0.2 (0.0-0.5) mg/dL AST 18 (5-31) U/L ALT 11 (0-31) U/L Alkaline Phosphatase 73 (39-117) U/L Total Protein 6.6 (6.5-8.0) g/dL Albumin 4.1 (3.5-5.0) g/dL Beta HCG, Quant 263167 mIU/mL Urine Color Urine Appearance Urine pH (5.0-9.0) Ur Specific [place] (1.005-1.025) Urine Protein (Neg-Trace) mg/dL Urine Glucose (UA) (Negative) mg/dL Urine Ketones (Negative) mg/dL Urine Blood (Negative) Urine Nitrite (Negative) Ur Leukocyte Esterase (Negative) Stool Occult Blood (NEGATIVE) 11/07/22 11/07/22 Range/Units 14:28 14:28 WBC (4.8-10.8) X10*3/uL RBC (4.20-5.50) X10*6/uL Hgb (12.0-16.0) g/dl Hct (37.0-47.0) % MCV (80.0-98.0) fL MCH (27.0-33.0) pg MCHC (31.0-35.0) g/dl RDW (11.0-16.0) % Plt Count (160-400) X10*3/uL MPV (9.4-12.3) fL Immature Gran % (Auto) (0.0-0.4) % Neut % (Auto) (45-73) % Lymph % (Auto) (20-40) % [place] % (Auto) (2-11) % Eos % (Auto) (0-4) % Baso % (Auto) (0-2) % Lymph # (Auto) (1.2-4.9) X10*3/uL [place] # (Auto) (0.1-1.2) X10*3/uL Eos # (Auto) (0.0-0.4) X10*3/uL Baso # (Auto) (0.0-0.2) X10*3/uL Abs Immat Gran (auto) (0.00-0.03) X10*3/uL Absolute Neuts (auto) (2.0-8.3) x10*3/uL Absolute Nucleated RBC (0.0-0.012) X10*3/uL Nucleated RBC % (auto) (0.0-0.2) /100WBC PT (10.0-13.1) SEC INR (0.9-1.1) APTT (26.0-36.4) SEC Sodium (135-145) mmol/L Potassium (3.3-5.1) mmol/L Chloride (96-108) mmol/L Carbon Dioxide (22-29) mmol/L Anion Gap (12-20) BUN (9-16) mg/dL Creatinine (0.5-1.4) mg/dL Estim Creat Clear Calc Estimated GFR Random Glucose (60-115) mg/dL Calcium (8.4-10.2) mg/dL Magnesium (1.6-2.6) mg/dL Total Bilirubin (0.0-1.0) mg/dL Direct Bilirubin (0.0-0.5) mg/dL AST (5-31) U/L ALT (0-31) U/L Alkaline Phosphatase (39-117) U/L Total Protein (6.5-8.0) g/dL Albumin (3.5-5.0) g/dL Beta HCG, Quant mIU/mL Urine Color Yellow Urine Appearance Cloudy Urine pH 6.0 (5.0-9.0) Ur Specific [place] 1.025 (1.005-1.025) Urine Protein Negative (Neg-Trace) mg/dL Urine Glucose (UA) Negative (Negative) mg/dL Urine Ketones Trace (Negative) mg/dL Urine Blood Negative (Negative) Urine Nitrite Negative (Negative) Ur Leukocyte Esterase Negative (Negative) Stool Occult Blood POSITIVE (NEGATIVE) <Jessi Carrizales MD - Last Filed: 11/07/22 16:11> Discharge Plan Discharge Clinical Impression: Gastritis <JEOVANY Walsh - Last Filed: 11/07/22 12:44> Patient Disposition: Home, Self-Care <JEOVANY Walsh - Last Filed: 11/07/22 12:44> Instructions: Gastritis (ED) <JEOVANY Walsh - Last Filed: 11/07/22 12:44> Prescriptions: No Action amoxicillin 500 mg capsule 500 mg PO BID 7 Days Qty: 14 0RF ibuprofen 600 mg tablet 600 mg PO Q8H PRN (Reason: fever or pain) Qty: 30 0RF Vitamin Plus Low Iron 27 mg iron- 1 mg tablet 1 tab PO DAILY Qty: 30 11RF <JEOVANY Walsh - Last Filed: 11/07/22 12:44> Referrals: Chika Minaya MD [Primary Care Provider] - <JEOVANY Walsh - Last Filed: 11/07/22 12:44> Stand Alone Forms: Work/School Release <JEOVANY Walsh - Last Filed: 11/07/22 12:44>
[2022-11-07 12:40] VITALS: BP 112/61; PULSE 81; RESP 18; TEMP 36.6; O2SAT 100; BMI 23.5
[2022-11-07 13:16] LABS: Basophils Percent Auto 0.5 % (0-2); Eosinophils Absolute Auto 0.1 X10*3/uL (0.0-0.4); Eosinophils Percent Auto 1.2 % (0-4); Hematocrit 34.2 % (37.0-47.0); Hemoglobin 11.3 g/dl (12.0-16.0); Imm Gran Abs Auto 0.02 X10*3/uL (0.00-0.03); Imm Gran Pct Auto 0.2 % (0.0-0.4); Lymphocytes Absolute Auto 1.8 X10*3/uL (1.2-4.9); Lymphocytes Percent Auto 21.4 % (20-40); MANUAL DIFF FLAG NO; Mean Corpuscular Volume 81.8 fL (80.0-98.0); Mean Platelet Volume 9.7 fL (9.4-12.3); Monocytes Absolute Auto 0.7 X10*3/uL (0.1-1.2); Monocytes Percent Auto 8.1 % (2-11); Neutrophils Absolute Auto 5.7 x10*3/uL (2.0-8.3); Neutrophils Percent Auto 68.6 % (45-73); Platelet Count 235 X10*3/uL (160-400); Red Blood Count 4.18 X10*6/uL (4.20-5.50); White Blood Count 8.4 X10*3/uL (4.8-10.8)
[2022-11-07 13:22] LABS: INTERNATIONAL NORM RATIO 1.1 (0.9-1.1); Prothrombin Time 12.3 SEC (10.0-13.1)
[2022-11-07 13:24] LABS: Partial Thromboplastin Time 30.5 SEC (26.0-36.4)
[2022-11-07 13:40] LABS: Alanine Aminotransferase 11 U/L (0-31); Albumin Level 4.1 g/dL (3.5-5.0); Alkaline Phosphatase 73 U/L (39-117); Anion Gap 11 (12-20); Aspartate Amino Transferase 18 U/L (5-31); Bilirubin Direct < 0.2 mg/dL (0.0-0.5); Bilirubin Total 0.3 mg/dL (0.0-1.0); Blood Urea Nitrogen 7 mg/dL (9-16); Carbon Dioxide 23 mmol/L (22-29); Chloride 104 mmol/L (96-108); Creatinine Clr Calc Pharmacy 132.4; Estimated Glomerular Filt Rate > 60; Glucose Random 88 mg/dL (60-115); Magnesium 1.7 mg/dL (1.6-2.6); Potassium 3.9 mmol/L (3.3-5.1); Sodium 134 mmol/L (135-145); Total Protein 6.6 g/dL (6.5-8.0)
[2022-11-07 14:21] VITALS: BP 123/69; PULSE 88; RESP 20; TEMP 37.4; O2SAT 100
[2022-11-07 14:42] LABS: Appearance Urine Cloudy; Color Urine Yellow; Glucose Urine UA Negative (Negative); Leukocyte Esterase Urine Negative (Negative); Nitrite Urine Negative (Negative); Specific Gravity - Urine 1.025 (1.005-1.025); Urine Blood Negative (Negative); Urine Ketones Trace mg/dL (Negative); Urine Protein Negative (Neg-Trace)
[2022-11-07 14:44] LABS: OBS Int Ctl Valid YES; OBS1 POSITIVE (NEGATIVE)
== END 2022-11-07 16:16 | disposition home or self-care (01) ==
PROVIDERS: Physician Assistant; Emergency Provider Emergency Medicine; PCP Pediatrics
DX: O26.91 Pregnancy related conditions, unspecified, first trimester (principal); Z3A.08 8 weeks gestation of pregnancy; Z79.899 Other long term (current) drug therapy
CPT/HCPCS: 36415; 80048; 80076; 81003; 82272; 83735; 84702; 85025; 85610; 85730; 99284

== ENCOUNTER → 2022-11-09 14:40 | Outpatient (BNVA) | payer OTHER, SELFPAY | PROVIDERS: PCP Pediatrics; Visit Provider Advanced Practice Midwife | DX: Z13.89 Encounter for screening for other disorder (principal) ==

== ENCOUNTER 2022-11-09 15:10 | Outpatient (REF) | payer OTHER, SELFPAY ==
--- NOTE | ~2022-11-09 | US_ITS ---
EXAMINATION: US OBSTETRICAL ULTRASOUND CLINICAL INFORMATION: Positive test. COMPARISON: 10/15/2022. LMP: 09/14/2022. Gestational age by maternal dates is 8 weeks 0 days. Estimated date of delivery by maternal dates is 06/21/2023. TECHNIQUE: Ultrasound of the maternal pelvis is performed using transabdominal transducer. M-mode Doppler is also performed. FINDINGS: There is a single intrauterine gestational sac with visible yolk sac, embryo/fetus, and cardiac activity. There is no significant subchorionic hemorrhage or hematoma. HR: 170 beats per minute. CRL (crown rump length): 1.91 cm (8 weeks 4 days +/- 4 days). ANDRES (estimated date of delivery): 06/17/2023 +/- 4 days. MATERNAL ADNEXA: The right maternal ovary measures 3.4 x 1.7 x 1.5 cm. The left maternal ovary measures 2.4 x 1.9 x 1.9 cm. Corpus renal cyst noted. There is no significant maternal adnexal mass. No maternal pelvic ascites. US/US OB <= 14 weeks fetus IMPRESSION: 1. Single intrauterine gestation with ultrasound gestational age of 8 weeks 4 days +/- 4 days. 2. Estimated date of delivery is 06/17/2023 +/- 4 days. 3. No maternal adnexal mass or pelvic ascites.
== END 2022-11-09 15:11 | disposition home or self-care (01) ==
LOC: HO.US 15:10
PROVIDERS: PCP Pediatrics; Visit Provider Advanced Practice Midwife
DX: O36.80X0 Pregnancy with inconclusive fetal viability, not applicable or unspecified (principal)
CPT/HCPCS: 76801

== ENCOUNTER → 2022-12-04 10:41 | Outpatient (BNVA) | payer OTHER, SELFPAY | PROVIDERS: PCP Pediatrics; Visit Provider Obstetrics & Gynecology | DX: Z13.89 Encounter for screening for other disorder (principal) ==

== ENCOUNTER 2022-12-04 12:52 | Day surgery (SDC) | payer OTHER, SELFPAY ==
[2022-12-04 13:30] VITALS: BMI 22.6
[2022-12-04 13:32] VITALS: BP 107/57; PULSE 80; RESP 16; TEMP 36.4; O2SAT 99
--- NOTE | 2022-12-04 13:40 | PC.NURSE ---
patient had urine HCG in office with Dr. Salazar this AM. patient had D&C suction [address] Salazar states HCG levels are still showing slightly elevated due to previous . Dr. Bird notified via [employer].
--- NOTE | 2022-12-04 13:54 | HO.ANESPROP2 ---
HPI - Anesthesia Eval Consult details Narrative: 22 yr old female forbartholin cyst marsupalisaton PMFSH Active Problems Active Problems: All Active Problems (Updated 12/04/22 @ 11:00 by Laurent Salazar MD) Early stage of (Acute) Bartholin's gland cyst (Acute) Irregular menses (Acute) Encounter for annual routine gynecological examination (Acute) Vaginal discharge (Acute) Encounter for IUD removal (Acute) control counseling (Acute) Chlamydia contact, treated (Acute) Past Medical History Medical History Oligohydramnios Placental abruption Family History Family history of problems with anesthesia: No Surgical History Surgical History H/O section History of Problems with Anesthesia: No Social History Social History Alcohol intake: never Patient Tobacco Use Status: Never used Tobacco Second Hand Smoke Exposure: No Use of substances other than those prescribed or required for medical reasons: No Are you DNR?: No Advance Directives: No Advance Directives Information Provided: Yes Advance Directives on File: No Patient : No Sexual orientation: Straight/Heterosexual Gender identity: Female Meds Allergies Allergy/AdvReac Type Severity Reaction Status Date / Time No Known Allergies Allergy Verified 12/04/22 10:49 [No Known Allergies*] Exam Exam Date and Time: December 04, 2022 1354 Height,Weight and Vital Signs: Height 5 ft 4 in Weight 59.874 kg Last Vital Signs Temp 97.5 F 12/04/22 13:32 Pulse 80 12/04/22 13:32 Resp 16 12/04/22 13:32 BP 107/57 L 12/04/22 13:32 Pulse Ox 99 12/04/22 13:32 O2 Del Method 12/04/22 13:32 Airway Mallampati Class: II TM Dist: >3cm Neck ROM: Full Heart: rrr Lungs: cta Assessment and Plan Assessment Anesthesia Assessment: Anesthesia Plan Discussed and Chart Reviewed Final Anesthetic Review Family History of Problems with Anesthesia: No History of Problems with Anesthesia: No NPO: Yes ASA Class: II Final Preanesthetic Review: No Changes in Pt Med Stat, Consent Obtained/Reviewed and Anes Risks/Benef Reviewed Patient Risk: Low Procedure Risk: Low Anesthetic Plan Anesthetic Plan: GA Disposition: Standard PACU
--- NOTE | 2022-12-04 15:20 | PM.OP ---
Brief Operative Note Date of Service: 12/04/22 Pre-op diagnosis: Recurrent left Bartholin's gland cyst Post-op diagnosis: same Procedure: Left Bartholin's cyst marsupialization Surgeon: Laurent Salazar MD Anesthesia: GLMA Was an Carton Filling Machine Operator used for this Procedure?: No Estimated blood loss (mL): 20 Pathology: none sent Condition: stable Disposition: PACU
--- NOTE | 2022-12-04 15:21 | W.PM.OPN ---
Operative Note Operative Note Date of Service: 12/04/22 Narrative: Preop diagnosis: Recurrent left Bartholin's gland cyst Operation : Left Bartholin's gland marsupialization Postop diagnosis: The same Estimated blood loss: 20 cc Anesthesia: GLMA Procedure: Patient was put in the dorsal a stoma position was scrubbed and draped in the usual sterile fashion. A 2 cm incision was made just outside the hymenal ring on the left side right into the cyst, 5 cc of whitish fluid came out. Then using Allis clamps both edges of the incision was held and the cyst wall was sutured to the edges of the vulvar epithelium using being 4-0 Vicryl interrupted everting the cyst wall. At the end irrigation was done and hemostasis was assured using pressure. The patient tolerated to procedure well and was transferred to the PACU in stable condition
[2022-12-04 15:25] VITALS: BP 103/78; PULSE 94; RESP 17; TEMP 36.7; O2SAT 100
[2022-12-04 15:30] VITALS: BP 120/67; PULSE 87; RESP 18; O2SAT 100
[2022-12-04 15:35] VITALS: BP 115/67; PULSE 86; RESP 18; O2SAT 100
[2022-12-04 15:40] VITALS: BP 116/56; PULSE 84; RESP 18; O2SAT 100
[2022-12-04 15:55] VITALS: BP 109/68; PULSE 78; RESP 18; TEMP 37.2; O2SAT 100
[2022-12-04] MEDS: oxyCODONE HCl Immed Release 5 MG TABLET PO (16:00)
== END 2022-12-04 16:19 | disposition home or self-care (01) ==
PROVIDERS: PCP Obstetrics & Gynecology; Visit Provider Obstetrics & Gynecology
PROC: (CPT 56440; principal; 2022-12-04 14:30)
DX: N75.0 Cyst of Bartholin's gland (principal); Z97.5 Presence of (intrauterine) contraceptive device
CPT/HCPCS: 56440; 99212; J1885; J2250; J2405; J3010

== ENCOUNTER 2022-12-20 11:14 | Outpatient (REF) | payer OTHER, SELFPAY ==
[2022-12-20 16:57] LABS: CT PCR NOT DETECTED (Not Detect.); NG PCR NOT DETECTED (Not Detect.)
[2022-12-21 05:42] LABS: Syphilis Screen Nonreactive (Nonreactive)
[2022-12-21 06:41] LABS: HBsAGNum1 0.33 S/CO (0.00-0.99); HIV AB/AG Nonreactive (Nonreactive); HIV Num 1 0.07 S/CO (0.00-0.99); Hepatitis B Surface Antigen Negative (Negative); ~HepC Num1 0.07 S/CO (0.00-0.79); ~Hepatitis C Antibody Nonreactive (Nonreactive)
[2022-12-21 11:10] LABS: BV Int Neg Control Negative (Negative); BV Int Pos Control Positive (Positive)
== END 2022-12-20 11:15 | disposition home or self-care (01) ==
LOC: HO.LAB 11:14
PROVIDERS: Visit Provider Obstetrics & Gynecology
DX: Z11.3 Encounter for screening for infections with a predominantly sexual mode of transmission (principal); Z11.4 Encounter for screening for human immunodeficiency virus [HIV]; N75.0 Cyst of Bartholin's gland; N76.0 Acute vaginitis; B96.89 Other specified bacterial agents as the cause of diseases classified elsewhere
CPT/HCPCS: 0353U; 36415; 86780; 86803; 87340; 87389; 87480; 87510; 87660; 99212

== ENCOUNTER 2024-10-23 10:24 | Emergency (ER) | payer OTHER, SELFPAY ==
--- NOTE | ~2024-10-23 | XR_ITS ---
EXAMINATION: XR KNEE, RIGHT CLINICAL INFORMATION: pain COMPARISON: None available. TECHNIQUE: Four views of the right knee. FINDINGS: No fracture or joint effusion. Alignment is anatomic. Joint spaces are maintained. No abnormal soft tissue calcification. XR/XR knee RT 3V IMPRESSION: Normal right knee. Electronically signed by: Ben Mccallum MD 10/23/2024 12:[address] [facility]
[2024-10-23 10:40] VITALS: BP 110/65; PULSE 81; RESP 20; TEMP 37.2; O2SAT 98; BMI 25.4
--- NOTE | 2024-10-23 12:05 | ED_ITS ---
HPI - General Adult General Chief complaint: Extremity Injury, Lower Stated complaint: R knee pain Time Seen by Provider: 10/23/24 12:52 Source: patient Mode of arrival: ambulatory Limitations: no limitations History of Present Illness ED Provider: Eladia Cuba PA-C HPI narrative: Patient is a 23 year old assigned female at with no reported medical history presenting to the emergency department today with right knee pain. Patient states that over the last few months she has had right knee pain. Patient denies any dizziness, lightheadedness, abdominal pain, nausea, vomiting, fever, chills, blurry vision, double vision, loss of vision, chest pain, difficulty breathing, shortness of breath, back pain, night sweats, pain with urination, increased urinary frequency, increased urinary urgency, blood in her urine or stool, syncope or a near syncopal episode, recent trauma or falls, bowel incontinence, bladder incontinence, or any other complaints at this time. Onset (ago): month(s) Location: right and lower extremity Relieving factors: none Exacerbating factors: none Associated symptoms: denies other symptoms Treatments prior to arrival: none Related Data Previous Rx's ?Medication ?Instructions ?Recorded vitamin with calcium 1 tab PO DAILY #30 tabs 10/25/22 no.72-iron 27 mg-folic acid 1 mg tablet ( Vitamins Plus Low Iron) vitamins no.175-iron 1 tab PO DAILY 30 days #30 tabs 12/06/22 fumarate 29 mg-folic acid 1 mg tablet metronidazole 500 mg tablet 500 mg PO BID 7 days #14 tabs 12/20/22 naproxen 500 mg tablet 500 mg PO BID 7 days #14 tabs 10/23/24 Allergies Allergy/AdvReac Type Severity Reaction Status Date / Time No Known Allergies Allergy Verified 10/23/24 10:43 [No Known Allergies*] Review of Systems Constitutional: Constitutional: Reports no additional constitutional complaints, Denies chills, Denies fever(s) and Denies night sweats Eyes: Eyes: Reports no additional eye complaints, Denies blurry vision, Denies change in vision, Denies diplopia, Denies eye discharge, Denies loss of vision and Denies eye pain ENT: Denies dizziness Cardiovascular: Cardiovascular: Reports no additional cardiovascular complaints, Denies chest pain, Denies lightheadedness, Denies Loss of Consciousness and Denies dyspnea Respiratory: Respiratory: Reports no additional respiratory complaints and Denies dyspnea Gastrointestinal: Gastrointestinal: Reports no additional gastrointestinal complaints, Denies abdominal pain, Denies melena, Denies hematochezia, Denies change in bowel habits and Denies change in stool character Genitourinary: Genitourinary: Denies hematuria, Denies urinary frequency, Denies dysuria, Denies urinary incontinence, Denies urinary hesitancy and Denies urinary urgency Musculoskeletal: Musculoskeletal: Reports no additional musculoskeletal complaints, Denies numbness and Denies tingling Comments: right knee pain Neurologic: Denies dizziness, Denies loss of vision, Denies numbness and Denies tingling Psychiatric: Psychiatric: Reports no additional psychiatric complaints Endocrine: Endocrine: Reports no additional endocrine complaints Hematologic/Lymphatic: Hematologic/Lymphatic: Reports no additional hematologic/lymphatic complaints Allergic/Immunologic: Allergic/Immunologic: Reports no additional allergic/immunologic complaints PMFSH Past Medical History Attestation statement: The following information was validated with the patient. Source: old records reviewed and nursing notes reviewed Medical History Oligohydramnios Placental abruption Surgical History H/O section Social History Social History Alcohol intake: never Patient Tobacco Use Status: Never used Tobacco Second Hand Smoke Exposure: No Advance Directives: No Advance Directives Information Provided: No Sexual orientation: Straight/Heterosexual Gender identity: Female Physical Exam ED Vital Signs: Vital Signs - 24 hr 10/23/24 10:40 10/23/24 13:01 Temperature 99 F 99 F Pulse Rate 81 81 Respiratory Rate 20 20 Blood Pressure 110/65 110/65 Pulse Oximetry 98 98 Oxygen Delivery Method Room Air Room Air BMI result Body Mass Index 25.4 Const General: cooperative, no acute distress, alert and awake Nutritional Appearance: well nourished Orientation/consciousness: patient oriented x3 Limitations: no limitations HENMT Head: Yes normal to inspection and Yes atraumatic Ears: hearing grossly normal bilaterally and external ears normal General nose exam: Normal external nose present, no nasal discharge noted and no epistaxis Face and sinus: Yes normal facial exam, No abrasion and No laceration Mouth: Normal oral and palatal mucosa present, no drooling and no muffled voice Eyes General: appearance normal, both eyes and all related structures Periorbital: periorbital findings normal Eyelids: Yes eyelids normal Conjunctivae: conjunctivae normal Pupils: Equal, round and reactive pupils present EOM: EOMs intact bilaterally Neck Neck: Yes normal visual inspection, Yes full ROM and Yes no lymphadenopathy Chest Chest palpation & inspection: normal inspection of the chest Resp Effort & Inspection: normal respiratory effort and able to speak in complete sentences GI Inspection: Yes normal to inspection Neuro General: patient oriented x3 and moves all extremities Cranial nerves: Yes Equal, round and reactive pupils present Cognition (Neuro): normal cognition Extrem Other: pain with palpation of the right patella General: Yes normal to inspection, Yes full ROM and Yes capillary refill normal Psych Appearance: grossly normal Mental Status: mental status grossly normal Affect: normal affect Attitude: cooperative Thought process: Normal thought process present Thought content: Normal thought content present Insight: Good insight present (Psych) Course Course Course Narrative: RME performed by Eladia Cuba PA-C. Patient is a 23 year old assigned female at presenting to the emergency department with right knee pain. Patient states ever since it has been cold outside she has had pain. Patient denies any trauma to the area. Detailed physical exam and review of systems are deferred to the combination window installer. Imaging ordered. Patient placed back in the w aiting room pending room availability and results. Medical Decision Making Medical Decision Making MDM Narrative: Patient is a 23 year old assigned female at with no reported medical history presenting to the emergency department today with right knee pain. Patient's physical exam was as noted in the physical exam portion of this note. Patient's right knee x-ray showed no acute process. I explained my physical exam findings as well as all test results to the patient. I answered all questions asked by the patient. Patient's clinical presentation is most consistent with general right knee pain / possible arthritis. I stressed the importance of the patient taking her medication as directed (either prescribed or as the over the counter packaging recommends). I stressed the importance of the patient following up with her primary care provider and an orthopedic provider. I stressed the importance of the patient returning to the emergency department immediately if her symptoms were to worsen or if she were to develop any dizziness, shortness of breath, difficulty breathing, chest pain, blurry vision, loss of vision, nausea, vomiting, abdominal pain, fever, chills, back pain, or any other complaints. Patient verbalized agreement and understanding with this treatment plan and discharge. Differential Diagnosis Differential Diagnoses: The differential diagnosis associated with the presentation includes Right knee pain Right knee arthritis Admission/Observation Consideration of admission/observation: Escalation of care including admission/observation considered Patient would have been admitted to the hospital had her work up had any findings where hospital admission was appropriate and her clinical presentation warranted hospital admission. Independent Interpretation I performed an independent interpretation of an: Plain X-Ray Interpretation: My interpretation is in agreement with the radiologist's impression of this imaging study. EXAMINATION: XR KNEE, RIGHT CLINICAL INFORMATION: pain COMPARISON: None available. TECHNIQUE: Four views of the right knee. FINDINGS: No fracture or joint effusion. Alignment is anatomic. Joint spaces are maintained. No abnormal soft tissue calcification. XR/XR knee RT 3V IMPRESSION: Normal right knee. Electronically signed by: Ben Mccallum MD 10/23/2024 12:43 PM [facility] [place] Dictated By: Ben Mccallum MD Signed By: Electronically signed by Ben Mccallum MD 10/23/24 1243 Radiology Impression Discussion of test interpretation with radiology: I have reviewed the radiologist's reading. Prescription Management I considered prescription management with: Pain Medication (patient prescribed pain medication) Discharge Plan Discharge Clinical Impression: Acute knee pain Patient Disposition: Home, Self-Care Instructions: Knee Pain (ED) Additional Instructions: Follow up with your primary care provider and an orthopedic provider. Return to the emergency department immediately if your symptoms worsen or if you develop any dizziness, shortness of breath, difficulty breathing, chest pain, blurry vision, loss of vision, nausea, vomiting, abdominal pain, fever, chills, back pain, or any other complaints. Prescriptions: New naproxen 500 mg tablet 500 mg PO BID 7 Days Qty: 14 0RF No Action PNV no.175-iron fum-folic acid 29-1 mg tablet 1 tab PO DAILY 30 Days Qty: 30 2RF Vitamin Plus Low Iron 27 mg iron- 1 mg tablet 1 tab PO DAILY Qty: 30 11RF metronidazole 500 mg tablet 500 mg PO BID 7 Days Qty: 14 0RF Referrals: [facility] Family Medicine [Provider Group] (Call to establish and follow up with a primary care provider. If you already have a primary care provider, please follow up with them.) [facility] Primary Care, [facility] [Provider Group] (Call to establish and follow up with a primary care provider. If you already have a primary care provider, please follow up with them.) [facility] Primary Care,[facility] [Provider Group] (Call to establish and follow up with a primary care provider. If you already have a primary care provider, please follow up with them.) [facility] Orthopedic Surgeons [Provider Group] (Call to establish and follow up with an orthopedic provider. If you already have an orthopedic provider, please follow up with them.) Stand Alone Forms: Work/School Release Interventions: ED Discharge Assessment Last Done: 10/23/24 13:01 Discharge Date/Time: 10/23/24 13:02 Print Language: Macedonian
[2024-10-23 13:01] VITALS: BP 110/65; PULSE 81; RESP 20; TEMP 37.2; O2SAT 98
== END 2024-10-23 13:02 | disposition home or self-care (01) ==
PROVIDERS: Emergency Provider Emergency Medicine
DX: M25.561 Pain in right knee (principal)
CPT/HCPCS: 73562; 99282; 99283

== ENCOUNTER → 2024-10-23 11:58 | Outpatient (BNV) | payer OTHER, SELFPAY | PROVIDERS: Emergency Provider Emergency Medicine; Visit Provider Radiology Diagnostic Radiology | DX: M25.561 Pain in right knee (principal) | CPT/HCPCS: 73562 ==

== ENCOUNTER 2024-11-25 10:30 | Outpatient (REF) | payer OTHER, SELFPAY ==
--- OUTSIDE RECORDS SUMMARY | 2024-11-26 14:05 | XMS_ITS | Encounter Summary ---
Author Organization [facility] Address [address] [place] [address] Phone Care Team Providers Care Sprinkling System Irrigator Name Role Phone Chika Minaya MD Primary Care Provider [phone] Encounter Details Date Type Department Care Team ([facility] Contact Info) Description 06/13/2017 Conversion Encounter [facility] - [address] [address] Social History Tobacco Use Types Packs/Day Years Used Date Smoking Tobacco: Never Comments:Never smoker Comments Unknown Sex and Gender Information Value Date Recorded Sex Assigned at Not on file Legal Sex Female 5:12 PM EDT Gender Identity Not on file Sexual Orientation Not on file documented as of this encounter Plan of Treatment Not on file documented as of this encounter Visit Diagnoses Not on filedocumented in this encounter Care Teams Sprinkling System Irrigator Relationship Specialty Start Date End Date Chika Minaya MD PCP - General Pediatrics 10/13/19 02/06/23 documented as of this encounter
--- OUTSIDE RECORDS SUMMARY | 2024-11-26 14:06 | XMS_ITS | Clinical Summary ---
Author Organization [address] Building Address [address] [place] [phone] Phone Care Team Providers Care Administrative Associate Name Role Phone Griselda Ojedamana Primary Care Provider [phone] Allergies No known active allergies Medications Medication Sig Dispensed Refills Start Date End Date Status magnesium aspart,citrate,oxid e (Triple Magnesium Complex) 400 mg magnesium capsule Take 400 mg by mouth daily. 11/14/2023 Active metroNIDAZOLE (METROGEL) 0.75 % (37.5mg/5 gram) vaginal gel 1 applicatorful PV nightly x5 nights 09/10/2023 Active vit no.124/iron/folic ( VITAMIN ORAL) Take 1 Capsule by mouth daily. 09/10/2023 Active Active Problems Problem Noted Date Diagnosed Date headache in second trimester 4 Alpha thalassemia silent carrier 09/09/2023 Overview (09/15/2024): [facility] 14 Panel Positive: Silent Carrier for Alpha Thalassemia (aa/a-). 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 Depending on carrier status of the patient's partner, this couple may be at increased risk to have a child with Hemoglobin H Disease. Carrier screening of the patient's partner is suggested. FOB#2 Giacomo Colunga 07/06/2001 Contact: - 09/09/23 order placed for him to be tested (pt will let him know) Prior with placent al abruption in third trimester, antepartum 08/27/2023 Subchorionic hemorrhage in first trimester 07/30 Overview (09/15/2024): 07/29/23 [facility] Ultrasound: 2 x 1.5 x 2.3 cm complex fluid collection is seen subjacent to the gestational sac, extending along approximately 30 percent of the sac circumference, consistent with a subchorionic hemorrhage. Surgical History Surgery Date Site/Laterality Comments SECTION 01/04/2021 PROCEDURE: HISTORICAL DELIVERY; COMMENT: Placental abruption. 36W 4D OTHER SURGICAL HISTORY PROCEDURE: HISTORICAL D&C; COMMENT: TAB x 2 OTHER SURGICAL HISTORY 10/2022 PROCEDURE: SD I&D OF BARTHOLINS GLAND ABSCESS; COMMENT: [facility]. Bartholins gland removed per patient Medical History Medical History Date Comments Patient denies medical problems DX:Patient denies medical problems Alpha thalassemia silent carrier 09/09/2023 DX:Alpha thalassemia silent carrier Family History Medical History Relation Name Comments No Known Problems Brother 1 No Known Problems Brother 2 No Known Problems Father Hypertension Maternal Grandfather Hypertension Maternal Grandmother No Known Problems Mother Dementia Paternal Grandfather Rheum arthritis Paternal Grandmother No Known Problems Sister 1 No Known Problems Sister 2 No Known Problems Sister 3 No Known Problems Sister 4 No Known Problems Sister 5 Breast cancer Neg Hx Colon cancer Neg Hx Ovarian cancer Neg Hx Pancreatic cancer Neg Hx Prostate cancer Neg Hx Uterine cancer Neg Hx Relation Name Status Comments Brother 1 Alive Brother 2 Alive Father Alive Maternal Grandfather Alive Maternal Grandmother Alive Mother Alive Paternal Grandfather Paternal Grandmother Alive Sister 1 Alive Sister 2 Alive Sister 3 Alive Sister 4 Alive Sister 5 Alive Son Gary Alive Social History Tobacco Use Types Packs/Day Years Used Date Smoking Tobacco: Never Smokeless Tobacco: Never Alcohol Use Standard Drinks/Week Comments Not Currently 0 (1 standard drink = 0.6 oz pur e alcohol) Housing Instability Answer Date Recorde d Are you worried that in the next 2 months you may not have stable housing? No 10/22/2024 Food Access & Nutrition Answer Date Rec orded Do you have access to a vari ety of food including fruits and vegetables? Yes 10/22/2024 Access to Healthcare Answer Date Record ed Within the last 3 months, ho w many times did you visit the emergency department for your medical care? 0 10/22/2024 Health Literacy Answer Date Recorded How often do you need to hav e someone help you when you read instructions, pamphlets, or other written material from your doctor or pharmacy? Never 10/22/2024 Caregiver: How often do you need to have someone help you when you read instructions, pamphlets, or other written material from your doctor or pharmacy? Not on file 10/22/2024 Financial Risk Answer Date Recorded How hard is it for you to pa y for the very basics like food, housing, medical care, and air conditioning / heating? Very hard 10/22/2024 Transportation Answer Date Recorded Has the lack of transportati on kept you from meetings, work, or from getting things needed for daily living? No Has the lack of transportati on kept you from medical appointments or from getting medications? No 10/22/2024 Social Isolation Answer Date Recorded How often do you feel lonely or isolated from th ose around you? Never 10/22/2024 Food Risk Answer Date Recorded Within the past 12 months we worried whether our food would run out before we got money to buy more. Never true 10/22/2024 Within the past 12 months th e food we bought just didn't last and we didn't have money to get more. Never true 10/22/2024 Dependent Care Answer Date Recorded Do you need help finding or paying for care for your loved ones. For example, child life assistant or elderly care for an older adult? No 10/22/2024 Education Answer Date Recorded Do you think completing more education or training, like finishing a GED, going to college, or learning a trade, would be helpful for you? N/A 10/22/2024 Employment and Income Answer Date Recor ded During the last four weeks, have you been actively looking for work? No 10/22/2024 Living Situation Answer Date Recorded What is your living situation? 1 12/23/2023 Sex and Gender Information Value Date Recorded Sex Assigned at Not on file Gender Identity Not on file Sexual Orientation Not on file Job Start Date Occupation Industry Not on file Not on file Not on file Obstetrics History Last Filed Vital Signs Vital Sign Reading Time Taken Comments Blood Pressure 131/71 12/09/2023 1:30 PM EST Pulse 96 12/09/2023 1:30 PM EST Temperature - - Respiratory Rate - - Oxygen Saturation - - Inhaled Oxygen Concentration - - Weight 68.9 kg (152 lb) 12/09/2023 1:30 PM EST Height - - Body Mass Index - - Plan of Treatment Upcoming Encounters Date Type Department Care Team (Late st Contact Info) Description 01/26/2025 2:00 PM EDT Office Visit Internal Medicine - [facility] [address] [place] [phone] Imani Weems NP [address] [place] [address] Health Maintenance Due Date Last Done Comments HPV Vaccines (1 - 3-dose series) 2015 DTaP,Tdap,and Td Vaccines (1 - Tdap) 2019 Hepatitis B Vaccines (1 of 3 - 19+ 3-dose series) 2019 HIV Screening 09/30/2022 COVID-19 Vaccine (1 - 2023-2 5 season) 2024 Influenza Vaccine (#1) 2024 Gonorrhea/Chlamydia Screening 09/09/2024 09/09/2023 Depression Screening 10/22/2025 10/22/2024 Social Influencers of Health Screening 10/22/2025 10/22/2024 Cervical Cancer Screening: P ap Smear 09/09/2026 09/09/2023, 09/09/2023 Hepatitis C Screening Completed 08/27/2023 HIB Vaccines Aged Out No longer eligi ble based on patient's age to complete this topic Hepatitis A Vaccines Aged Out No long er eligible based on patient's age to complete this topic IPV Vaccines Aged Out No longer eligi ble based on patient's age to complete this topic MMR Vaccines Aged Out No longer eligi ble based on patient's age to complete this topic Meningococcal ACWY Vaccine Aged Out N o longer eligible based on patient's age to complete this topic Pneumococcal Vaccine: Pediatrics (0 to 5 Years) and At-Risk Patients (6 to 64 Years) Aged Out No longer eligible b ased on patient's age to complete this topic RSV Immunization Patients Under 20 months Aged Out No longer eligible b ased on patient's age to complete this topic Varicella Vaccines Aged Out No longer eligible based on patient's age to complete this topic Procedures Procedure Name Priority Date/Time Associated Diagnosis Comments HM HPV Routine 09/09/2023 GONORRHEA/CHLAMYDIA SCRREENING Routine 09/09/2023 HEPATITIS C SCREENING Routine 08/27/2023 from Last 3 Months or Most Recently Relevant to Health Maintenance Results * Cervical Cancer Screening: HPV (09/09/2023) Cervical Cancer Screening: HPV no interpretation , abstracted [facility] * Gonorrhea/Chlamydia Screening (09/09/2023) Gonorrhea/Chla mydia Screening abstracted Historical Provider [facility] * Hepatitis C Screening (08/27/2023) Hepatitis C Screening abstracted [facility] from Last 3 Months or Most Recently Relevant to Health Maintenance Care Teams Administrative Associate Relationship Specialty Start Date End Date Deann Ojeda DO [facility] [place] [address] PCP - General Internal Medicine 08/20/24
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
--- OUTSIDE RECORDS SUMMARY | 2024-11-26 14:06 | XMS_ITS | Encounter Summary ---
Author Organization [facility] Address [address] [place] [phone] Phone Care Team Providers Care Grinder Operator Name Role Phone Chika Minaya MD Primary Care Provider [phone] Reason for Visit * Reason Comments Med Refill Encounter Details Date Type Department Care Team ([facility] Contact Info) Description 11/20/2019 Refill [facility] [place] [address] [place] [address] Chika Minaya MD [address] [facility] [address] [place] [address] Anxiety Social History Tobacco Use Types Packs/Day Years Used Date Smoking Tobacco: Never Smokeless Tobacco: Never Comments:Never smoker Alcohol Use Standard Drinks/Week Comments No 0 (1 standard drink = 0.6 oz pur e alcohol) Hunger/Food Answer Date Recorded No 02/25/2019 Stable Housing Answer Date Recorded No 10/29/2019 Transportation Concerns Answer Date Rec orded No 02/25/2019 Hazards in Home Answer Date Recorded No 02/25/2019 Financing Utilities Answer Date Recorde d No 02/25/2019 Safety at Home Answer Date Recorded No 02/25/2019 Outside Support Answer Date Recorded No 02/25/2019 Understanding Health Concerns Answer Da te Recorded No 02/25/2019 Financing Health Concerns Answer Date R ecorded No 02/25/2019 Missing School or Work Answer Date Chuck rded No 02/25/2019 Comments No Sex and Gender Information Value Date Recorded Sex Assigned at Not on file Legal Sex Female 5:12 PM EDT Gender Identity Not on file Sexual Orientation Not on file documented as of this encounter Miscellaneous Notes * Telephone Encounter - Jono Guerra LPN - 11/20/2019 10:18 AM EST Pharm request for refill on hydroxyzine and sertraline. Pt with follow up apt on 11/25/19. documented in this encounter Plan of Treatment Not on file documented as of this encounter Visit Diagnoses Diagnosis Anxiety Anxiety state, unspecified documented in this encounter Care Teams Grinder Operator Relationship Specialty Start Date End Date Chika Minaya MD PCP - General Pediatrics 10/13/19 02/06/23 documented as of this encounter
== END 2024-11-25 10:31 | disposition home or self-care (01) ==
LOC: HO.HOSX 10:30
PROVIDERS: Visit Provider Physician Assistant
DX: Z13.89 Encounter for screening for other disorder (principal)

== ENCOUNTER 2025-01-04 15:32 | Day surgery (SDC) | payer OTHER, SELFPAY ==
--- NOTE | ~2025-01-04 | US_ITS ---
CLINICAL HISTORY: epigastric ruq pain elevated liver enz US abdomen limited Comparison: None Findings: The visualized pancreas is normal. The liver is normal in size and echotexture. There is no intrahepatic bile duct dilatation. The common duct is 2.0 mm in diameter. There are multiple gallstones in the gallbladder. Normal wall thickness of the gallbladder. The main portal vein is antegrade. IMPRESSION: Cholelithiasis with no sonographic evidence of acute cholecystitis. This document has been electronically signed by: Delma Pate MD on 01/04/2025 19:56:11
--- NOTE | 2025-01-04 15:35 | ECG_ITS ---
Test Reason : chest pain Blood Pressure : */* mmHG Vent. Rate : 73 BPM Atrial Rate : 73 BPM P-R Int : 140 ms QRS Dur : 92 ms QT Int : 352 ms P-R-T Axes : 35 21 44 degrees QTcB Int : 387 ms Normal sinus rhythm Incomplete right bundle branch block Borderline ECG No previous ECGs available Referred By: Generic ED Physician Electronically Signed By: DINA WANG
[2025-01-04 15:39] VITALS: BP 130/75; PULSE 80; RESP 19; TEMP 36.6; O2SAT 99; BMI 24.2
--- NOTE | 2025-01-04 15:43 | ED_ITS ---
HPI - General Adult General Chief complaint: General Medical Stated complaint: chest ,neck pain,diarrhea Time Seen by Provider: 01/04/25 22:02 Source: patient Mode of arrival: ambulatory Limitations: no limitations History of Present Illness ED Provider: DR. Carrizales [facility] narrative: 24-year-old female presented today for evaluatio of epigastric/ chest pain with right upper quadrant abdominal pain for 3-4 days, pain is worse with any type of food, feels like the food gets stuck in her mid chest, patient is afraid to eat because of the pain lost 6 lb in the last 4 days, no nausea, no vomiting patient also having right shoulder right neck pain no history of injury or trauma to the right shoulder on neck, otherwise no weakness or numbness in the right arm. No fever, no chills, no dysuria, no frequency urination. Never had intra-abdominal surgery in the past. Related Data Previous Rx's ?Medication ?Instructions ?Recorded hydrocodone 5 mg-acetaminophen 325 1 tab PO Q4-6H PRN pain #30 tabs 01/05/25 mg tablet Allergies Allergy/AdvReac Type Severity Reaction Status Date / Time bacitracin Allergy Swelling Verified 01/05/25 11:55 Review of Systems 2 Review of Systems: All other systems are reviewed and are negative Constitutional: Reports as per HPI and Reports no additional constitutional complaints Eyes: Reports as per HPI and Reports no additional eye complaints Reports system reviewed and no additional complaints, except as documented Cardiovascular: Reports as per HPI and Reports no additional cardiovascular complaints Respiratory: Reports as per HPI and Reports no additional respiratory complaints Gastrointestinal: Reports as per HPI and Reports no additional gastrointestinal complaints Genitourinary: Reports no additional female genitourinary complaints Musculoskeletal: Reports no additional musculoskeletal complaints Skin/Breast: Reports system reviewed and no additional complaints, except as docu Psychiatric: Reports no additional psychiatric complaints Endocrine: Reports no additional endocrine complaints Hematologic/Lymphatic: Reports no additional hematologic/lymphatic complaints Allergic/Immunologic: Reports no additional allergic/immunologic complaints Reports system reviewed and no additional complaints, except as documented and Reports Abnormal speech present [facility] Past Medical History Medical History Oligohydramnios Placental abruption Surgical History H/O section Social History Social History Alcohol intake: never Patient Tobacco Use Status: Never used Tobacco Second Hand Smoke Exposure: No Sexual orientation: Straight/Heterosexual Gender identity: Female Physical Exam ED Vital Signs: Vital Signs - 24 hr 01/04/25 15:39 01/04/25 22:10 01/05/25 04:08 Temperature 98 F 98.4 F 98.0 F Pulse Rate 80 86 77 Respiratory Rate 19 14 14 Blood Pressure 130/75 125/82 104/57 L Pulse Oximetry 99 99 99 Oxygen Delivery Method Room Air Room Air Room Air BMI result Body Mass Index 24.2 Vital signs have been reviewed and appear to be correct. Blood pressure elevated. Heart rate normal. Respiratory rate normal. Temperature normal. Oxygen saturation normal. Appearance: Alert. Oriented X3. No acute distress. Head: Normal external exam. Normocephalic. Atraumatic. No Holland signs noted. No raccoon eyes noted Eyes: PERRLA. EOMI. Conjunctiva and sclera normal. Eyelids normal. ENT: TM's Normal. Pharynx normal. Uvula midline. Moist mucous membranes. No trismus noted. No drooling noted. No muffled voice noted. Neck: Normal inspection. Neck supple. FROM. No adenopathy. Thyroid Normal. No meningeal signs. No neck mass noted. CVS: Normal heart rate and rhythm. Heart sound normal. No murmurs noted. Pulses normal throughout. Respiratory: No respiratory distress. Painless inspiration. Breath sounds normal. No wheezes/rales/rhonchi noted. Chest nontender. No accessory muscle usage noted or decreased air movement noted. Abdomen: Soft , epigastric/right upper quadrant abdominal tenderness, +[place] sign,Bowel sounds normal in all 4 quadrants. No distention noted. No organomegaly noted. No visible injury noted. Back: No CVA tenderness. Full range of motion noted. Skin: Skin warm and dry. Normal skin color. Normal skin turgor. No rashes/lesions/lacerations noted. Extremities: No lower extremity edema. Extremities exhibit normal range of motion. Extremities nontender. Neuro: Oriented X 3. Cranial nerve exam: II-XII are grossly intact No motor deficit. No sensory deficit. Reflexes normal. Course Course Course Narrative: This is a Rapid Medical Examination (RME) performed by Justin Pollock PA-C in triage. Full HPI, ROS, assessment and treatment plan per primary provider in the Main ED. 24 yo female here for eval of chest pain (more epigastric) radiating to back x1 week, worse w/ eating. feels like her food gets stuck in her epigastrium. no vomiting. admits to diarrhea x3 wks. Plan: labs, ekg Reevaluation(s) Reevaluation #1: 24-year-old female with with 3 days of RUQ pain, +leukocytosis, elevation of LFTs, no acute cholecystitis on ultrasound, patient lost weight due to decreased p.o. intake. Case discussed with Dr. Mitchell who will see the patient in the a.m., we will keep the patient for observation and symptomatic treatment. Will cover with empirical coverage with ceftriaxone. No signs of sepsis. Time: 22:55 Reevaluation #2: patient is still feeling the same, case discussed with Dr. Mitchell and the plan is cholecystectomy today. Time: 07:14 Medications Administered Discontinued Medications Generic Name Dose Route Start Last Admin Trade Name Freq PRN Reason Stop Dose Admin Al Hydroxide/Mg Hydroxide 30 ml 01/05/25 01:25 01/05/25 02:03 Magnesium Hydrox/Alum Hydrox 30 Ml Oral.Susp PO 01/05/25 01:26 30 ml ONCE ONE Administration Ceftriaxone Sodium 1 gm 01/04/25 22:58 01/04/25 23:38 Ceftriaxone Sodium 1 Gm Vial IVPUSH 01/04/25 22:59 1 gm ONCE ONE Administration Fentanyl 25 mcg 01/05/25 13:57 01/05/25 15:00 Fentanyl Citrate/Pf 100 Mcg/2 Ml Vial IVPUSH 01/05/25 19:57 25 mcg Q5M PRN Administration Pain, Moderate to Severe (Pain Scale 4-10) Hydromorphone HCl 0.5 mg 01/05/25 09:27 01/05/25 09:35 Hydromorphone Hcl 0.5 Mg/0.5 Ml Syringe IVPUSH 0.5 mg Q2H PRN Administration Pain, Severe (Pain Scale 7-10) Protocol Hydromorphone HCl 0.25 mg 01/05/25 15:28 01/05/25 16:05 Hydromorphone Hcl 0.5 Mg/0.5 Ml Syringe IVPUSH 01/05/25 21:28 0.25 mg Q5M PRN Administration Pain, Moderate to Severe (Pain Scale 4-10) Ketorolac Tromethamine 15 mg 01/05/25 00:23 01/05/25 00:36 Ketorolac Tromethamine 15 Mg/Ml Vial IVPUSH 01/05/25 00:24 15 mg ONCE ONE Administration Morphine Sulfate 1 mg 01/05/25 00:23 01/05/25 00:36 Morphine Sulfate 2 Mg/Ml Cartridge IVPUSH 01/05/25 00:24 1 mg ONCE ONE Administration Protocol Medical Decision Making Differential Diagnosis Differential Diagnoses: The differential diagnosis associated with the presentation includes ( Acute cholecystitis, cholelithiasis, pancreatitis, gastritis, colitis, electrolyte derangement, severe anemia, ) Admission/Observation Consideration of admission/observation: Escalation of care including admission/observation considered Consult Healthcare Provider Management of the patient was discussed with: Quarter Trimmer ( Dr. Mitchell) Lab Data MDM Lab Attestation statement: I reviewed the patient's lab results. 01/04/25 15:48 01/04/25 15:48 Labs: Lab Results 01/04/25 01/04/25 Range/Units 15:48 22:08 WBC 7.8 (4.8-10.8) X10*3/uL RBC 4.76 (4.20-5.50) X10*6/uL Hgb 13.0 (12.0-16.0) g/dl Hct 38.4 (37.0-47.0) % MCV 80.7 (80.0-98.0) fL MCH 27.3 (27.0-33.0) pg MCHC 33.9 (31.0-35.0) g/dl RDW 12.0 (11.0-16.0) % Plt Count 287 (160-400) X10*3/uL MPV 9.9 (9.4-12.3) fL Immature Gran % (Auto) 0.4 (0.0-0.4) % Neut % (Auto) 67.2 (45-73) % Lymph % (Auto) 24.0 (20-40) % [place] % (Auto) 5.6 (2-11) % Eos % (Auto) 2.2 (0-4) % Baso % (Auto) 0.6 (0-2) % Lymph # (Auto) 1.9 (1.2-4.9) X10*3/uL [place] # (Auto) 0.4 (0.1-1.2) X10*3/uL Eos # (Auto) 0.2 (0.0-0.4) X10*3/uL Baso # (Auto) 0.1 (0.0-0.2) X10*3/uL Abs Immat Gran (auto) 0.03 (0.00-0.03) X10*3/uL Absolute Neuts (auto) 5.3 (2.0-8.3) x10*3/uL Absolute Nucleated RBC 0.000 (0.0-0.012) X10*3/uL Nucleated RBC % (auto) 0.0 (0.0-0.2) /100WBC Sodium 140 (135-145) mmol/L Potassium 4.0 (3.3-5.1) mmol/L Chloride 109 H (96-108) mmol/L Carbon Dioxide 22 (22-29) mmol/L Anion Gap 13 (12-20) BUN 9 (9-16) mg/dL Creatinine 0.62 (0.5-1.4) mg/dL Estim Creat Clear Calc 120.8 Estimated GFR > 60 Random Glucose 86 (60-115) mg/dL Calcium 9.6 D (8.4-10.2) mg/dL Magnesium 1.8 (1.6-2.6) mg/dL Total Bilirubin 0.6 (0.0-1.0) mg/dL AST 43 H (5-31) U/L ALT 89 H (0-31) U/L Alkaline Phosphatase 183 H (39-117) U/L Troponin I High Sens < 2.7 (<3.5-17.0) ng/L Total Protein 7.8 (6.5-8.0) g/dL Albumin 4.3 (3.5-5.0) g/dL Lipase 19 (8-78) U/L Beta HCG, Quant < 2 mIU/mL Urine Color Yellow Urine Appearance Clear Urine pH 5.5 (5.0-9.0) Ur Specific [place] 1.020 (1.005-1.025) Urine Protein Negative (Neg-Trace) mg/dL Urine Glucose (UA) Negative (Negative) mg/dL Urine Ketones Trace (Negative) mg/dL Urine Blood Negative (Negative) Urine Nitrite Negative (Negative) Ur Leukocyte Esterase Negative (Negative) Influenza Type A (PCR) NEGATIVE (Negative) Influenza Type B (PCR) NEGATIVE (Negative) RSV RNA Qual (PCR) NEGATIVE (Negative) SARS-CoV-2 RNA (RT-PCR) NEGATIVE (Negative) Independent Interpretation I performed an independent interpretation of an: Ultrasound ( abdominal ultrasound: Cholelithiasis with no sonographic evidence of acute cholecystitis.) Radiology Impression Discussion of test interpretation with radiology: I have reviewed the radiologist's reading. Discharge Plan Discharge Clinical Impression: Cholelithiasis Patient Disposition: Still a Patient Transfer Details: TO THE OR Interventions: Admission Worksheet (ED) Last Done: 01/05/25 11:50 Discharge Date/Time: 01/05/25 11:50
[2025-01-04 15:54] LABS: MANUAL DIFF FLAG NO
[2025-01-04 15:58] LABS: Basophils Absolute Auto 0.1 X10*3/uL (0.0-0.2); Basophils Percent Auto 0.6 % (0-2); Eosinophils Absolute Auto 0.2 X10*3/uL (0.0-0.4); Eosinophils Percent Auto 2.2 % (0-4); Hematocrit 38.4 % (37.0-47.0); Imm Gran Abs Auto 0.03 X10*3/uL (0.00-0.03); Imm Gran Pct Auto 0.4 % (0.0-0.4); Lymphocytes Absolute Auto 1.9 X10*3/uL (1.2-4.9); Mean Corpuscular HGB Conc 33.9 g/dl (31.0-35.0); Mean Corpuscular Hemoglobin 27.3 pg (27.0-33.0); Mean Corpuscular Volume 80.7 fL (80.0-98.0); Mean Platelet Volume 9.9 fL (9.4-12.3); Monocytes Absolute Auto 0.4 X10*3/uL (0.1-1.2); Monocytes Percent Auto 5.6 % (2-11); Neutrophils Absolute Auto 5.3 x10*3/uL (2.0-8.3); Neutrophils Percent Auto 67.2 % (45-73); Platelet Count 287 X10*3/uL (160-400); Red Blood Count 4.76 X10*6/uL (4.20-5.50); White Blood Count 7.8 X10*3/uL (4.8-10.8)
[2025-01-04 16:19] LABS: Troponin-I High Sensitivity < 2.7 ng/L (<3.5-17.0)
[2025-01-04 16:33] LABS: Alanine Aminotransferase 89 U/L (0-31); Albumin Level 4.3 g/dL (3.5-5.0); Anion Gap 13 (12-20); Aspartate Amino Transferase 43 U/L (5-31); Bilirubin Total 0.6 mg/dL (0.0-1.0); Blood Urea Nitrogen 9 mg/dL (9-16); Calcium 9.6 mg/dL (8.4-10.2); Carbon Dioxide 22 mmol/L (22-29); Chloride 109 mmol/L (96-108); Creatinine Clr Calc Pharmacy 120.8; Estimated Glomerular Filt Rate > 60; Glucose Random 86 mg/dL (60-115); HCG Quantitative < 2 mIU/mL; Lipase 19 U/L (8-78); Magnesium 1.8 mg/dL (1.6-2.6); Sodium 140 mmol/L (135-145); Total Protein 7.8 g/dL (6.5-8.0)
[2025-01-04 16:36] LABS: Influenza A PCR NEGATIVE (Negative); Influenza B PCR NEGATIVE (Negative); Resp Syncy Virus RNA Qual PCR NEGATIVE (Negative); SARS COV2 PCR INHOUSE NEGATIVE (Negative)
[2025-01-04 17:35] LABS: Alkaline Phosphatase 183 U/L (39-117)
--- OUTSIDE RECORDS SUMMARY | 2025-01-04 22:02 | XMS_ITS | Clinical Summary ---
Author Organization [address] Building Address [address] [place] [id number] Phone Care Team Providers Care Special Diet Cook Name Role Phone LynetteDeann Primary Care Provider [phone] Allergies No known active allergies Medications magnesium aspart,citrate ,oxide (Triple Magnesium Complex) 400 mg magnesium capsule Take 400 mg by mouth daily. 4 Active metroNIDAZOLE (METROGEL) 0.75 % (37.5mg/5 gram) vaginal gel 1 applicatorful PV nightly x5 nights 3 Active vit no.124/iron/fo lic ( VITAMIN ORAL) Take 1 Capsule by mouth daily. 3 Active Active Problems Problem Noted Date Diagnosed [...] the patient's partner is suggested. FOB#2 Giacomo Corrala 07/06/2001 Contact: - 09/09/23 order placed for him to be tested (pt will let him know) Prior with placent al abruption in third trimester, antepartum 08/27/2023 Subchorionic hemorrhage in first trimester 07/30 Overview (09/15/2024): 07/29/23 [facility] Ultrasound: 2 x 1.5 x 2.3 cm complex fluid collection is seen subjacent to the gestational sac, extending along approximately 30 percent of the sac circumference, consistent with a subchorionic hemorrhage. Surgical History Surgery Date Site/Laterality Comments SECTION 01/04/2021 PROCEDURE: HISTORICAL DELIVERY; COMMENT: Placental abruption. 36W 4D OTHER SURGICAL HISTORY PROCEDURE: HISTORICAL D&C; COMMENT: TAB x 2 OTHER SURGICAL HISTORY 10/2022 PROCEDURE: RI I&D OF BARTHOLINS GLAND ABSCESS; COMMENT: [facility]. Bartholins gland removed per patient Medical [...] care for your loved ones. For example, director child abuse therapy or elderly care for an older adult? [...] What is your living situation? 1 12/23/2023 Comments Unknown Sex and Gender Information Value Date Recorded Sex Assigned at Not on file Legal Sex Female 4:57 AM EST Gender Identity Not on file Sexual Orientation Not on file Obstetrics History Last Filed [...] Upcoming Encounters Date Type Department Care Team ([facility]ure[facility] st Contact Info) Description 01/26/2025 2:00 PM EDT Office Visit Internal Medicine - [facility] [address] [place] [phone] Imani Weems NP [address] [place] [address] Health Maintenance Due Date Last Done Comments [...] patient's age to complete this topic Meningococcal B Vacine Aged Out No lo nger eligible based on patient's age to complete [...] Procedure Name Priority Date/Time Associated Diagnosis Comments HPV Routine 09/09/2023 GONORRHEA/CHLAMYDIA SCRREENING Routine 09/09/2023 HEPATITIS C SCREENING Routine 08/27/2023 from Last 3 Months or Most Recently Relevant to Health Maintenance Results * Cervical Cancer Screening: HPV (09/09/2023) Cervical Cancer Screening: HPV no interpretation , abstracted [facility] Provider HEALTH MAINTENANCE Final Result * Gonorrhea/Chlamydia Screening (09/09/2023) Pathologist [facility] Gonorrhea/Chla mydia Screening abstracted [facility] Provider HEALTH MAINTENANCE Final Result * Hepatitis C Screening (08/27/2023) Hepatitis C Screening abstracted [facility] Provider HEALTH MAINTENANCE Final Result from Last 3 Months or Most Recently Relevant to Health Maintenance Insurance [facility] Care Teams Special Diet Cook Relationship Specialty Start Date End Date Deann Ojeda DO [address] [place] [address] PCP - General Internal Medicine 08/20/24
--- OUTSIDE RECORDS SUMMARY | 2025-01-04 22:02 | XMS_ITS | Encounter Summary ---
Author Organization [facility] Address [address] [place] [phone] Phone Care Team Providers Care Digital Advertising Specialist Name Role Phone Chika Minaya MD Primary Care Provider [phone] Reason for Visit * Reason Comments Med Refill Encounter Details Date Type Department Care Team ([facility] Contact Info) Description 11/20/2019 Refill [facility] [address] [place] [address] Chika Minaya MD [address] [facility] [address] [place] [address] Anxiety Social History Tobacco Use Types Packs/Day [...] unspecified documented in this encounter Care Teams Digital Advertising Specialist Relationship Specialty Start Date End Date Chika Minaya MD PCP - General Pediatrics 10/13/19 02/06/23 documented as of this encounter
--- OUTSIDE RECORDS SUMMARY | 2025-01-04 22:02 | XMS_ITS | Clinical Summary ---
Author Organization [facility] Address [address] [place] [phone] Phone Care Team Providers Care Solid Waste Manager Name Role Phone Unavailable Primary Care Provider Unavailabl e Allergies No known active allergies Medications No known medications Active Problems Problem Noted Date Diagnosed Date Anxiety 02/07/2018 Overview (03/16/2022): Endorsed again at 02/2019 [facility] exam- do not think this is hypoglycemia, but panic 10/30/2019: Anxiety consult with [facility] 7=18, trial Sertraline started at 12.5 x 1 week, then up to 25 and pt referred for further eval to [facility] but was NS to appointment. TSH screen WNL 11/25/19: Sx partially improved on 25 mg QD x 3 weeks, trial increase to 50 mg and refer to [facility] 12/17: significant activation/panic sx at 50 [...] prepared by Greg. Declines repeat referral to [facility] at this time, but would like [...] to 50, pursue CBT through referral to [facility] as expect pt to need > [...] infection 05/28/2020 10/30/19 21 Overview (10/30/2020): 05/25/20 [facility] ER visit, + Chlamydia, negative GC, + [...] K gram negative rods, Rx Bactrim Immunizations Immunization Administration Dates Next Due DTaP 5 03/01/2005, [...] of Thrombophilia, No family history of Sudden /MD under age 55, No family history of [...] Health Maintenance Due Date Last Done Comments Influenza Vaccines (#1) 2024 08/15/20, 09/26/2020, 10/30/2019, Additional history exists COVID-19 Vaccine ( season) 2024 03/13/2021, 02/20/2021 DTaP,Tdap,and Td Vaccines [...] 05/19/20 14 Meningococcal Vaccine Completed 02/05/2018, 013 Men B Vaccine Aged Out No longer elig ible based on patient's age to complete this topic Procedures * Due to [place] state law, this organization might not be sharing sensitive test results. Procedure Name Priority Date/Time Associated Diagnosis Comments CHLAMYDIA AND GONORRHEA, AMPLIFIED Routine 11/20/2021 11:40 AM EST Special screening examination for chlamydial disease from Last 3 Months or Most Recently Relevant to Health Maintenance Results * Due to [place] state law, this organization might not be sharing sensitive test results. * Chlamydia and Gonorrhoea, Amplified (11/20/2021 11:40 AM EST) Chlamydia Trachomatis, DNA Probe NEGATIVE (NEG) [facility] Comment: No Chlamydia Trachomatis RNA detected in this patient's sample ? (REFERENCE RANGE/NORMAL VALUE: NOT DETECTED) ? Note: This test uses entertainment manager- mediated amplification method to detect rRNA from C. Trachomatis URINE GC AMP PROBE NEGATIVE (NEG) [facility] Comment: No Neisseria Gonorrhoeae RNA detected in this patient's sample ? (REFERENCE RANGE/NORMAL VALUE: NOT DETECTED) ? NOTE: This test uses entertainment manager-mediated amplification method to detect rRNA from N.Gonorrhoeae. [...] risk of sexual abuse. Consult the [facility] if needed. Contact phone number . Therapeutic failure or success cannot be determined with the Aptima Combo2 assay since nucleic acid may persist following appropriate antimicrobial therapy. The Centers for Disease Control and Prevention (CDC) recommends confirmatory retesting using culture or a different nucleic acid amplification test when positive results occur, if indicated. Testing performed or reported by [facility], a Service of [facility], [facility] Alejandra Gary, [place] [address] Kameron Edward MD, Six Sigma Project Manager [facility]# [id number] 11/20/2021 11:4 0 AM EST 11/20/2021 8:04 PM EST us Nkechi Rey MD LAB MICROBIOLOGY - GENERAL [facility]ROY Final Result [facility] from Last 3 Months or Most Recently Relevant to Health Maintenance
[2025-01-04 22:10] VITALS: BP 125/82; PULSE 86; RESP 14; TEMP 36.9; O2SAT 99
[2025-01-04 22:19] LABS: Appearance Urine Clear; Color Urine Yellow; Glucose Urine UA Negative (Negative); Leukocyte Esterase Urine Negative (Negative); Nitrite Urine Negative (Negative); PH 5.5 (5.0-9.0); Urine Blood Negative (Negative); Urine Ketones Trace mg/dL (Negative); Urine Protein Negative (Neg-Trace)
[2025-01-04] MEDS: cefTRIAXone sodium 1 GM VIAL IVPUSH (23:38)
[2025-01-05] VITALS (20 sets, daily range): BP systolic 104–130; BP diastolic 54–81; PULSE 70–88; RESP 14–24; TEMP 36.1–36.7; O2SAT 98–100; BMI 24.2
[2025-01-05] MEDS: Ketorolac Tromethamine 15 MG/ML VIAL IVPUSH (00:36)
[2025-01-05] MEDS: Morphine Sulfate 2 MG/ML CARTRIDGE 1 MG IVPUSH (00:36)
--- NOTE | 2025-01-05 01:30 | PC.NURSE ---
Addendum entered by Silvia Vegas 01/05/25 01:31: after medicated per dec pt reports pain improved to 4/10, but now has heartburn. aware. Original Note: 2330 pt reports 8/10 neck pain, reports abd pain mild. aware.
[2025-01-05] MEDS: Magnesium Hydrox/Alum Hydrox 30 ML ORAL.SUSP PO (02:03)
[2025-01-05] MEDS: HYDROmorphone HCl 0.5 MG/0.5 ML SYRINGE IVPUSH (09:35)
--- NOTE | 2025-01-05 10:16 | PC.NURSE ---
REPORT GIVEN TO NGA RN
--- NOTE | 2025-01-05 11:49 | PC.NURSE ---
Pt being transported to [facility] by transporter.
--- NOTE | 2025-01-05 12:02 | PM.HPGS ---
History of Present Illness History of Present Illness Date of Service: 01/05/25 Chief complaint: chest ,neck pain,diarrhea Narrative: Elli Mccarthy is a 24 year old female very healthy female who presents here with a 1 day history of progressively worsening right upper quadrant pain radiating around to her back. She has never had such symptoms before. Because of progression of pain, she presents to the emergency department which workup demonstrated acute cholecystitis findings by ultrasound. Patient otherwise prior to this tolerating a diet. She has regular bowel habits. She has never been jaundiced before. Chart was reviewed and patient evaluated PMFSH Past Medical History Medical History Oligohydramnios Placental abruption Surgical History Surgical History H/O section Social History Social History Alcohol intake: never Patient Tobacco Use Status: Never used Tobacco Smoked in Last 30 Days: No Second Hand Smoke Exposure: No Use of substances other than those prescribed or required for medical reasons: No Advance Directives: No Advance Directives Information Provided: No Do you have a plan to hurt others: No Plan Sexual orientation: Straight/Heterosexual Gender identity: Female Meds Allergies Allergy/AdvReac Type Severity Reaction Status Date / Time bacitracin Allergy Swelling Verified 01/05/25 11:55 Active Medications: Current Medications Hydromorphone HCl (Hydromorphone Hcl 0.5 Mg/0.5 Ml Syringe) 0.5 mg IVPUSH Q2H PRN; Protocol PRN Reason: Pain, Severe (Pain Scale 7-10) Last Admin: 01/05/25 09:35 Dose: 0.5 mg Home Medications ?Medication ?Instructions ?Recorded ?Confirmed ?Last Taken ?Type No Known Home Meds 01/05/25 01/05/25 Unknown History Physical Exam Vital Signs: Vital Signs: Last Vital Signs Temp 98.0 F 01/05/25 04:08 Pulse 70 01/05/25 09:16 Resp 18 01/05/25 09:35 BP 108/54 L 01/05/25 09:16 Pulse Ox 98 01/05/25 09:16 O2 Del Method Room Air 01/05/25 09:16 BMI result Body Mass Index 24.2 Const: Other: Patient evaluated this morning with mother present. Chest: Other: Chest breath sounds bilaterally, HS 1 in 2 GI: Other: Mildly corpulent abdomen. Marked right upper quadrant tendernes and a positive [place]'s sign. Results Results Labs: Short CBC 01/04/25 Range/Units 15:48 WBC 7.8 (4.8-10.8) X10*3/uL Hgb 13.0 (12.0-16.0) g/dl Hct 38.4 (37.0-47.0) % Plt Count 287 (160-400) X10*3/uL BMP 01/04/25 15:48 Sodium 140 Potassium 4.0 Chloride 109 H Carbon Dioxide 22 BUN 9 Creatinine 0.62 Calcium 9.6 D Liver Function 01/04/25 Range/Units 15:48 Total Bilirubin 0.6 (0.0-1.0) mg/dL AST 43 H (5-31) U/L ALT 89 H (0-31) U/L Alkaline Phosphatase 183 H (39-117) U/L Albumin 4.3 (3.5-5.0) g/dL Urine 01/04/25 Range/Units 22:08 Urine Color Yellow Urine Appearance Clear Urine pH 5.5 (5.0-9.0) Ur Specific [place] 1.020 (1.005-1.025) Urine Protein Negative (Neg-Trace) mg/dL Urine Glucose (UA) Negative (Negative) mg/dL Assessment and Plan (1) Acute cholecystitis due to biliary calculus: Status: Acute Plan Risks, benefits, alternatives laparoscopic possible open cholecystectomy reviewed with the patient and her mother which included but not limited to bleeding, infection, numbness, pain, scarring, bowel or bile duct injury or leak and the patient wishes to proceed. All questions answered. Patient will be an add on case for this late morning/early afternoon. Quality Stroke Does the patient have a stroke diagnosis?: No VTE Prior VTE?: No VTE Risk Level:: Surgical - low VTE Device Contraindication: N/A - Device Ordered VTE Drug Contraindication: Treatment Not Indicated Procedures Date of Service Date of Service: 01/05/25
--- NOTE | 2025-01-05 13:06 | P.CONAN_ITS ---
[facility] Active Problems Active Problems: All Active Problems Acute cholecystitis due to biliary calculus (Acute) Cholelithiasis (Acute) Bacterial vaginosis (Acute) Screening for STD (sexually transmitted disease) (Acute) Early stage of (Acute) Bartholin's gland cyst (Acute) Irregular menses (Acute) Encounter for annual routine gynecological examination (Acute) Vaginal discharge (Acute) Encounter for IUD removal (Acute) control counseling (Acute) Chlamydia contact, treated (Acute) Past Medical History Medical History Oligohydramnios Placental abruption Family History Family history of problems with anesthesia: No Surgical History Surgical History H/O section History of Problems with Anesthesia: No Social History Social History Alcohol intake: never Patient Tobacco Use Status: Never used Tobacco Smoked in Last 30 Days: No Second Hand Smoke Exposure: No Use of substances other than those prescribed or required for medical reasons: No Are you DNR?: No Advance Directives: No Advance Directives Information Provided: No Do you have a plan to hurt others: No Plan Sexual orientation: Straight/Heterosexual Gender identity: Female Meds Allergies Allergy/AdvReac Type Severity Reaction Status Date / Time bacitracin Allergy Swelling Verified 01/05/25 11:55 Active Medications: Current Medications Hydromorphone HCl (Hydromorphone Hcl 0.5 Mg/0.5 Ml Syringe) 0.5 mg IVPUSH Q2H PRN; Protocol PRN Reason: Pain, Severe (Pain Scale 7-10) Last Admin: 01/05/25 09:35 Dose: 0.5 mg Exam Height,Weight and Vital Signs: Height 5 ft 4 in Weight 63.957 kg Last Vital Signs Temp 97.9 F 01/05/25 12:08 Pulse 70 01/05/25 12:08 Resp 16 01/05/25 12:08 BP 107/65 01/05/25 12:08 Pulse Ox 98 01/05/25 12:08 O2 Del Method Room Air 01/05/25 12:08 Pertinent Lab Results Pertinent Lab Results: Laboratory Tests 01/04/25 01/04/25 15:48 22:08 WBC 7.8 RBC 4.76 Hgb 13.0 Hct 38.4 MCV 80.7 MCH 27.3 MCHC 33.9 RDW 12.0 Plt Count 287 MPV 9.9 Immature Gran % (Auto) 0.4 Neut % (Auto) 67.2 Lymph % (Auto) 24.0 [place] % (Auto) 5.6 Eos % (Auto) 2.2 Baso % (Auto) 0.6 Lymph # (Auto) 1.9 [place] # (Auto) 0.4 Eos # (Auto) 0.2 Baso # (Auto) 0.1 Abs Immat Gran (auto) 0.03 Absolute Neuts (auto) 5.3 Absolute Nucleated RBC 0.000 Nucleated RBC % (auto) 0.0 Sodium 140 Potassium 4.0 Chloride 109 H Carbon Dioxide 22 Anion Gap 13 BUN 9 Creatinine 0.62 Estim Creat Clear Calc 120.8 Estimated GFR > 60 Random Glucose 86 Calcium 9.6 D Magnesium 1.8 Total Bilirubin 0.6 AST 43 H ALT 89 H Alkaline Phosphatase 183 H Troponin I High Sens < 2.7 Total Protein 7.8 Albumin 4.3 Lipase 19 Beta HCG, Quant < 2 Urine Color Yellow Urine Appearance Clear Urine pH 5.5 Ur Specific [place] 1.020 Urine Protein Negative Urine Glucose (UA) Negative Urine Ketones Trace Urine Blood Negative Urine Nitrite Negative Ur Leukocyte Esterase Negative Influenza Type A (PCR) NEGATIVE Influenza Type B (PCR) NEGATIVE RSV RNA Qual (PCR) NEGATIVE SARS-CoV-2 RNA (RT-PCR) NEGATIVE Airway Mallampati Class: I TM Dist: >3cm Neck ROM: Full Loose/Missing/Broken Teeth: No Heart: RRR Lungs: CTA Assessment and Plan Assessment Anesthesia Assessment: Anesthesia Plan Discussed and Chart Reviewed Final Anesthetic Review Family History of Problems with Anesthesia: No History of Problems with Anesthesia: No NPO: Yes ASA Class: I Final Preanesthetic Review: Meds/Allgs Chart Reviewed, Consent Obtained/Reviewed and Anes Risks/Benef Reviewed Patient Risk: Low Procedure Risk: Intermediate Anesthetic Plan Anesthetic Plan: GA Disposition: Standard PACU
--- NOTE | 2025-01-05 14:20 | P.OP_ITS ---
Operative Note Operative Note Date of Service: 01/05/25 Narrative: Preoperative diagnosis: [] Symptomatic gallbladder/acute cholecystitis Postop diagnosis: [] The same Procedure [] laparoscopic cholecystectomy Surgeon: [] Stephne Chief Executive: [] Anish SHAW Type of Anesthesia: [] General Indication for surgery: [] Edematous Gallbladder with omental adhesions to it. Moderately intrahepatic gallbladder. Findings: [] Patient brought to the operating room, placed on operative table supine position, after an adequate level of general anesthesia was induced, the patient's abdomen was prepped and draped in usual sterile fashion. Using a supraumbilical curvilinear incision, Rondon technique was used to insufflate abdominal cavity to 15 mm of CO2. Upper midline and right subcostal ports were placed under direct laparoscopic view, and the patient placed in reverse Trendelenburg position, and tilted to the left. Findings were as noted above. Gallbladder was grasped using laparoscopic graspers and retracted superiorly and laterally. Soft omental adhesions were swept off the gallbladder and the hilum was approached. Cystic artery and cystic duct were each identified, circumferentially skeletonized, traced directly into the gallbladder, and critical view obtained. Each was clipped proximally x2, distally x1, and transected . The gallbladder which was moderately intrahepatic was then cauterized from the gallbladder fossa using Bovie. Specimen placed in an Endo- Catch bag, a retrieved through the umbilical port. Abdominal cavity was copiously irrigated and secured hemostasis. All ports removed under direct laparoscopic view. Wounds were closed in the following manner; umbilical wound had its fascia reapproximated using interrupted 0 Vicryl sutures. Skin wounds were closed using subcuticular 4-0 Vicryl sutures followed by Steri-Strips and sterile dressings. Wounds were infiltrated 0.5% Marcaine at completion. Sponge, needle, and instrument counts reported correct. Patient tolerated the procedure well and emerged from anesthesia stable condition. EBL minimal
[2025-01-05] MEDS: fentaNYL citrate/PF 100 MCG/2 ML VIAL 25 MCG IVPUSH ×4 (14:30→15:00)
[2025-01-05] MEDS: HYDROmorphone HCl 0.5 MG/0.5 ML SYRINGE 0.25 MG IVPUSH ×4 (15:30→16:05)
== END 2025-01-05 16:40 | disposition home or self-care (01) ==
LOC: HO.ED 01-05 07:11 → HO.SSS 01-05 07:15
PROVIDERS: Physician Assistant Medical; Emergency Provider Emergency Medicine; Visit Provider Surgery
PROC: 0FT44ZZ Resection of Gallbladder, Percutaneous Endoscopic Approach (ICD-10-PCS; CPT 47562; principal; 2025-01-05 13:30)
DX: Z03.818 Encounter for observation for suspected exposure to other biological agents ruled out (principal); K80.12 Calculus of gallbladder with acute and chronic cholecystitis without obstruction; R10.11 Right upper quadrant pain
CPT/HCPCS: 47562; 0241U; 36415; 76705; 80053; 81003; 83690; 83735; 84484; 84702; 85025; 87040; 88304; 93005; 96374; 96375; 99285; J0690; J0696; J1100; J1171; J1885; J2003; J2250; J2270; J2405; J2704; J2795; J3010

== ENCOUNTER → 2025-01-04 15:35 | Outpatient (BNV) | payer OTHER, SELFPAY | PROVIDERS: Emergency Provider Emergency Medicine; Visit Provider Internal Medicine | DX: I45.10 Unspecified right bundle-branch block (principal) | CPT/HCPCS: 93010 ==

== ENCOUNTER → 2025-01-04 18:20 | Outpatient (BNV) | payer OTHER, SELFPAY | PROVIDERS: Visit Provider Nuclear Medicine | DX: K80.20 Calculus of gallbladder without cholecystitis without obstruction (principal) | CPT/HCPCS: 76705 ==

== ENCOUNTER → 2025-01-05 07:14 | Outpatient (BNV) | payer OTHER, SELFPAY | PROVIDERS: Emergency Provider Emergency Medicine; Visit Provider Surgery | DX: K80.00 Calculus of gallbladder with acute cholecystitis without obstruction (principal) | CPT/HCPCS: 47562; 99285 ==

== ENCOUNTER 2025-01-12 10:27 | Outpatient (AMB) | payer OTHER, SELFPAY ==
--- NOTE | 2025-01-12 10:34 | A.OFFVIS_ITS ---
Intake Visit Reasons: S/p lap abilio Intake Note: Patient here s/p laparoscopic cholecystectomy. Reports incision healing well. Patient c/o: no concerns. Steri strips removed without incident. No longer taking rx pain meds. Surgery: 01-05-2025 Assistant Sales Manager Required: No Accompanied by: Self / Same As Patient Allergies bacitracin Allergy (Verified 01/12/25 10:34) Swelling HPI Comments Details: Patient presents for follow-up status post laparoscopic cholecystectomy. She is doing well. She is tolerating diet. Having regular bowel habits. She is increasing her activity level. She has improved incisional discomfort. [facility] Medical History Oligohydramnios Placental abruption Surgical History H/O section Social History Alcohol intake: never Patient Tobacco Use Status: Never used Tobacco Second Hand Smoke Exposure: No Sexual orientation: Straight/Heterosexual Gender identity: Female Female Reproductive History Menstrual Age of Menarche: 11 Physical Exam Eyes Other: Anicteric GI Other: Abdomen is soft, benign all wounds clean dry and intact Assessment & Plan Assessment & Plan (1) Status post laparoscopic cholecystectomy: Code(s): Z90.49 - Acquired absence of other specified parts of digestive tract Category: Medical Plan Patient was been given local instructions, avoiding strenuous activities next few weeks time, no for work, and otherwise follow-up p.r.n.. All questions answered. Coding Level of Care Code Global (86240) Diagnoses Status post laparoscopic cholecystectomy Z90.49
--- OUTSIDE RECORDS SUMMARY | 2025-01-12 12:11 | XMS_ITS | Clinical Summary ---
Author Organization [facility] Address [address] [place] [phone] Phone Care Team Providers Care Sports Fitness And Wellness Director Name Role Phone Unavailable Primary Care Provider Unavailabl e Allergies No known active allergies Medications No known medications Active Problems Problem Noted Date Diagnosed Date Anxiety 02/07/2018 Overview (03/16/2022): Endorsed again at 02/2019 [facility] exam- do not think this is hypoglycemia, but panic 10/30/2019: Anxiety consult with [facility] 7=18, trial Sertraline started at 12.5 x 1 week, then up to 25 and pt referred for further eval to [facility] but was NS to appointment. TSH screen WNL 11/25/19: Sx partially improved on 25 mg QD x 3 weeks, trial increase to 50 mg and refer to [facility] 12/17: significant activation/panic sx at 50 [...] prepared by Greg. Declines repeat referral to [facility] at this time, but would like [...] to 50, pursue CBT through referral to [facility] as expect pt to need > [...] infection 05/28/2020 10/30/19 21 Overview (10/30/2020): 05/25/20 [facility] visit, + Chlamydia, negative GC, + [...] of Thrombophilia, No family history of Sudden /[place] under age 55, No family history of [...] complete this topic Procedures * Due to [place] state law, this organization might not be sharing sensitive test results. Procedure Name Priority Date/Time Associated Diagnosis Comments CHLAMYDIA AND GONORRHEA, AMPLIFIED Routine 11/20/2021 11:40 AM EST Special screening examination for chlamydial disease from Last 3 Months or Most Recently Relevant to Health Maintenance Results * Due to [place] state law, this organization might not be sharing sensitive test results. * Chlamydia and Gonorrhoea, Amplified (11/20/2021 11:40 AM EST) Chlamydia Trachomatis, DNA Probe NEGATIVE (NEG) [facility] Comment: No Chlamydia Trachomatis RNA detected in this patient's sample ? (REFERENCE RANGE/NORMAL VALUE: NOT DETECTED) ? Note: This test uses manager distribution- mediated amplification method to detect rRNA from C. Trachomatis URINE GC AMP PROBE NEGATIVE (NEG) [facility] Comment: No Neisseria Gonorrhoeae RNA detected in this patient's sample ? (REFERENCE RANGE/NORMAL VALUE: NOT DETECTED) ? NOTE: This test uses manager distribution-mediated amplification method to detect rRNA from N.Gonorrhoeae. [...] without risk of sexual abuse. Consult the [facility] if needed. Contact phone number . Therapeutic failure or success cannot be determined with the Aptima Combo2 assay since nucleic acid may persist following appropriate antimicrobial therapy. The Centers for Disease Control and Prevention (CDC) recommends confirmatory retesting using culture or a different nucleic acid amplification test when positive results occur, if indicated. Testing performed or reported by [facility], a Service of [facility], [facility] Alejandra Gary, [place] [address] Kameron Edward MD, Stock Letterer [facility]# [id number] 11/20/2021 11:4 0 AM EST 11/20/2021 8:04 PM EST us Nkechi Rey MD LAB MICROBIOLOGY - GENERAL BRENDAN MONROY Final Result [facility] from Last 3 Months or Most Recently Relevant to Health Maintenance
--- OUTSIDE RECORDS SUMMARY | 2025-01-12 12:11 | XMS_ITS | Encounter Summary ---
Author Organization [facility] Address [address] [place] [phone] Phone Care Team Providers Care Silo Worker Name Role Phone Chika Minaya MD Primary Care Provider [phone] Reason for Visit * Reason Comments Med Refill Encounter Details Date Type Department Care Team ([facility] Contact Info) Description 11/20/2019 Refill [facility] [address] [place] [address] Chika Minaya MD [address] [facility] [address] [place] [address] Anxiety Social History Tobacco Use Types Packs/Day [...] unspecified documented in this encounter Care Teams Silo Worker Relationship Specialty Start Date End Date Chika Minaya MD PCP - General Pediatrics 10/13/19 02/06/23 documented as of this encounter
--- OUTSIDE RECORDS SUMMARY | 2025-01-12 12:11 | XMS_ITS | Clinical Summary ---
Author Organization [address] Building Address [address] [place] [phone] Phone Care Team Providers Care Academic Affairs Dean Name Role Phone LynetteDeann Primary Care Provider [phone] Allergies No known active allergies Medications magnesium [...] in first trimester 07/30 Overview (09/15/2024): 07/29/23 [facility] Ultrasound: 2 x 1.5 x 2.3 cm complex fluid collection is seen subjacent to the gestational sac, extending along approximately 30 percent of the sac circumference, consistent with a subchorionic hemorrhage. Surgical History Surgery Date Site/Laterality Comments SECTION 01/04/2021 PROCEDURE: HISTORICAL DELIVERY; COMMENT: Placental abruption. 36W 4D OTHER SURGICAL HISTORY PROCEDURE: HISTORICAL D&C; COMMENT: TAB x 2 OTHER SURGICAL HISTORY 10/2022 PROCEDURE: SC I&D OF BARTHOLINS GLAND ABSCESS; COMMENT: [facility]. Bartholins gland removed per patient Medical [...] for your loved ones. For example, child care coordinator or elderly care for an older adult? [...] PM EDT Office Visit Internal Medicine - [facility] [address] [place] [phone] Imani Weems NP [address] [place] [address] Health Maintenance Due Date Last Done Comments [...] Cancer Screening: HPV no interpretation , abstracted [facility] Provider HEALTH MAINTENANCE Final Result * Gonorrhea/Chlamydia Screening (09/09/2023) Pathologist [facility] Gonorrhea/Chla mydia Screening abstracted [facility] Provider HEALTH MAINTENANCE Final Result * Hepatitis C Screening (08/27/2023) Hepatitis C Screening abstracted [facility] Provider HEALTH MAINTENANCE Final Result from Last 3 Months or Most Recently Relevant to Health Maintenance Insurance [facility] [place] [phone] Care Teams Academic Affairs Dean Relationship Specialty Start Date End Date Deann Ojeda DO [address] [place] [address] PCP - General Internal Medicine 08/20/24
--- OUTSIDE RECORDS SUMMARY | 2025-01-12 12:11 | XMS_ITS | Encounter Summary ---
Author Organization [facility] Address [address] [place] [address] Phone Care Team Providers Care Cardiac Rehab Nurse Name Role Phone Chika Minaya MD Primary Care Provider [phone] Encounter Details Date Type Department Care Team ([facility] Contact Info) Description 06/13/2017 Conversion Encounter [facility] - [address] [address] Social History Tobacco Use Types Packs/Day Years [...] on filedocumented in this encounter Care Teams Cardiac Rehab Nurse Relationship Specialty Start Date End Date Chika Minaya MD PCP - General Pediatrics 10/13/19 02/06/23 documented as of this encounter
== END 2025-01-12 10:54 | disposition home or self-care (01) ==
LOC: HO.HGS 10:28
PROVIDERS: Visit Provider Surgery
DX: Z90.49 Acquired absence of other specified parts of digestive tract (principal)
CPT/HCPCS: 99024

== ENCOUNTER → 2025-01-12 10:27 | Outpatient (BNVA) | payer OTHER, SELFPAY | PROVIDERS: Visit Provider Surgery | DX: Z09 Encounter for follow-up examination after completed treatment for conditions other than malignant neoplasm (principal); Z90.49 Acquired absence of other specified parts of digestive tract | CPT/HCPCS: 99212 ==